=== PATIENT | female | born 1945 | race Caucasian/White ===

== ENCOUNTER 2019-08-10 14:04 | Inpatient (IN) | payer OTHER, MEDICARE ==
--- NOTE | 2019-08-10 16:06 | PDOC ---
History of Present Illness <Yumiko Harrington - Last Filed: 08/10/19 20:23> - General History Source: Patient, Family Exam Limitations: Clinical Condition (Unable to recall recent events) - History of Present Illness Initial Comments: HPI: 74 y/o female presenting to [facility] ER from home after family found her on the floor of the bathroom. Pt is unable to clearly explain the details of what transpired. Started interview by explaining she fell on Sunday in her kitchen, but then cannot explain why she was found in the bathroom. Denies falling in the bathroom. Denies any pain. Complaining of thirst - states she has not drank water in two days, but cannot explain why. Daughter and grandchildren present at bedside. They report last speaking to the pt on Sunday. Became concerned when they were not able to reach to the pt on the phone today for mosque. Medical Hx: - Colitis Surgical Hx: - S/p hip repair two years ago Review of Systems: In addition to that documented in the HPI above, the additional ROS was obtained : Constitutional- Denies fevers or chills Head- Denies vision changes ENMT- Denies sore throat CV- Denies chest pain Resp- Denies SOB GI- Denies vomiting or abdominal pain - Denies painful urination MSK- Denies recent trauma Skin- Denies new rashes Neuro- Denies new numbness or tingling or weakness Endocrine- Denies polyuria Heme- Denies bleeding or bruising Physical Examination: Vital signs and nursing notes reviewed. Constitutional- Nontoxic adult female in no acute distress or obvious discomfort. Found semi-fowlers on hospital stretcher. Head- Normocephalic. No obvious external signs of trauma. No Porras's sign or periorbital bruising. Eyes- Pupils 4mm and PERRL bilaterally. EOMI. No vertical or horizontal nystagmus. Sclerae white. Conjunctiva moist and not injected. Ears- No discharge. Hearing grossly intact. Nose- No nasal discharge. Throat- Dry mucosal membrane. Poor dentition with multiple dental caries. Neck- Supple, trachea is midline. No JVD. Cardiovascular / Chest- Regular rate and regular rhythm. No murmur, rubs, clicks , or gallops. Peripheral pulses- radial pulses full. Trace pretibial edema. Respiratory- Breathing unlabored. Equal chest rise and fall. Clear to auscultation bilaterally. No stridor, no wheezing, no rhonchi. Gastrointestinal- abdomen is soft, non-tender, non-distended. No pulsatile masses. No overlying skin lesions or obvious signs of trauma. Neuro- Alert and oriented to person, place, day of week, but cannot recall recent events. Moving all four extremities spontaneously. No facial asymmetry. No slurred speech. No drift in upper or lower extremities. No visual field cut. MSK- Pelvis stable and nontender to lateral compression. No leg length discrepancy. Pt able to hold both legs off the bed without discomfort. Skin- Warm and dry. Diffuse erythema to gluteal region. No open sores. Psych- Affect- appropriate. Mood- normal. Speech was non-labored, non- pressured. MDM: 74 y/o female presenting with disoriented mental status after fall at home. Unknown period of time on floor. Afebrile. Vitals unremarkable for hypotension or tachycardia. Physical exam as described above. Low suspicion for bony injury , but will evaluate with CXR and Pelvis plain film. Will evaluate for rhabdomyolysis, ACS, ICH, and electrolyte derangement. HCT unremarkable for acute injury. Reviewed plain films. No obvious fracture or dislocation per ED wet read. Radiology report pending. Noted mildly elevated CK , but not >5x normal. Will hydrate with LR at maintenance dose. Will admit the pt for further hydration and AMS workup. 10 Aug 2019 20:42 PM Page sent for Dr. Askew through office answering service for courtesy call. Awaiting call back. 10 Aug 2019 22:07 PM Telephone discussion with resident Dr. Caballero. Verbally appraised of the pts HPI, ED course, and current plan of management. Will admit pt to med/surg for attending Dr. Everett. UA pending at time of admission. Christiano Burger M.D., PGY2 Emergency Medicine Resident <Christiano Burger - Last Filed: 08/10/19 22:08> - General Chief Complaint: Injury Stated Complaint: FALL Time Seen by Provider: 08/10/19 14:56 NIH Stroke Scale - Last Known Well Date/Time & Onset Date Last Known Well: 08/08/19 Time Last Known Well: 18:00 - Initial Evaluation Level of consciousness: Alert Ask patient the month and their age: Answers one correctly Ask patient to open & close eyes; make fist and let go: Obeys both correctly Best gaze (horizontal eye movement): Normal Visual field testing: No visual field loss Facial paresis (Show teeth/raise eyebrows/close eyes tight): Normal symmetrical movement Motor Function: Left Arm: Normal Motor Function: Right Arm: Normal (extends arm 90 (or 45) degrees for 10 seconds without drift Motor Function: Left Leg: Normal (extends leg 30 degrees for 5 seconds without drift) Motor Function: Right Leg: Normal (extends leg 30 degrees for 5 seconds without drift) Limb Ataxia: No ataxia Sensory(Use pinprick test arms,legs,trunk,face/side to side): Normal Best language (Describe picture, name items, read sentences): No Aphasia Dysarthria (read several words): Normal articulation Extinction and Inattention: No abnormality - Total Score NIH Stroke Scale Score: 1 <Christiano Burger - Last Filed: 08/10/19 22:08> Past History <Yumiko Harrington - Last Filed: 08/10/19 20:23> - Past Medical History COPD: No GI Disorders: Yes (CROHNS/COLITIS) - Psycho Social/Smoking Cessation Hx Smoking Status: No Smoking History: Never smoked Have you smoked in the past 12 months: No Number of Cigarettes Smoked Daily: 0 Information on smoking cessation initiated: No Hx Alcohol Use: No Drug/Substance Use Hx: No <Christiano Burger - Last Filed: 08/10/19 22:08> - Past Medical History Allergies/Adverse Reactions: Allergies Allergy/AdvReac Type Severity Reaction Status Date / Time No Known Allergies Allergy Verified 08/10/19 14:36 Home Medications: Ambulatory Orders No Home Medications 0 dose .ROUTE UTDICT 03/05/13 *Physical Exam - Vital Signs Last Vital Signs Temp Pulse Resp BP Pulse Ox 97.3 F L 84 16 136/90 100 08/10/19 14:23 08/10/19 14:23 08/10/19 14:23 08/10/19 14:23 08/10/19 16:03 <Yumiko Harrington - Last Filed: 08/10/19 20:23> - Vital Signs Last Vital Signs Temp Pulse Resp BP Pulse Ox 97.3 F L 84 16 136/90 100 08/10/19 14:23 08/10/19 14:23 08/10/19 14:23 08/10/19 14:23 08/10/19 14:23 <Christiano Burger - Last Filed: 08/10/19 22:08> ED Treatment Course - LABORATORY CBC & Chemistry Diagram: 08/10/19 16:20 08/10/19 16:20 - ADDITIONAL ORDERS Additional order review: Laboratory Results 08/10/19 08/10/19 08/10/19 16:20 16:20 16:20 PT with INR 11.50 INR 0.97 PTT (Actin FS) 27.9 Sodium 137 Potassium 3.6 Chloride 103 Carbon Dioxide 25 Anion Gap 10 BUN 35.6 H Creatinine 0.9 Est GFR (CKD-EPI)AfAm 72.49 Est GFR (CKD-EPI)NonAf 62.55 POC Glucometer Random Glucose 197 H Calcium 9.7 Total Bilirubin 0.9 AST 49 H ALT 43 Alkaline Phosphatase 131 H Creatine Kinase 888 H Creatine Kinase Index 1.6 CK-MB (CK-2) 14.5 H Troponin I < 0.02 Total Protein 7.1 Albumin 3.7 Blood Type Antibody Screen 08/10/19 08/10/19 16:20 14:42 PT with INR INR PTT (Actin FS) Sodium Potassium Chloride Carbon Dioxide Anion Gap BUN Creatinine Est GFR (CKD-EPI)AfAm Est GFR (CKD-EPI)NonAf POC Glucometer 182 Random Glucose Calcium Total Bilirubin AST ALT Alkaline Phosphatase Creatine Kinase Creatine Kinase Index CK-MB (CK-2) Troponin I Total Protein Albumin Blood Type B POSITIVE Antibody Screen Negative 08/10/19 08/10/19 16:20 14:42 RBC 5.42 H MCV 80.7 MCHC 34.6 RDW 15.3 MPV 8.0 Neutrophils % 83.9 H Lymphocytes % 7.9 L Monocytes % 7.5 Eosinophils % 0.1 Basophils % 0.6 POC Glucometer 182 - Medications Given in the ED: ED Medications Discontinued Medications Generic Name Dose Route Start Last Admin Trade Name Freq PRN Reason Stop Dose Admin Lactated Ringer's 1,000 ml 08/10/19 16:22 08/10/19 16:30 Lactated Ringers Solution IV 08/10/19 16:23 1,000 ml ONCE ONE Administration <Yumiko Harrington - Last Filed: 08/10/19 20:23> - LABORATORY CBC & Chemistry Diagram: 08/10/19 16:20 08/10/19 16:20 - ADDITIONAL ORDERS Additional order review: Laboratory Results 08/10/19 14:42 POC Glucometer 182 08/10/19 14:42 POC Glucometer 182 - RADIOLOGY Radiology Studies Ordered: Category Date Time Status CERVICAL SPINE CT W/O CONTR [CT] Stat CT Scan 08/10/19 15:[address] WITHOUT CONTRAST [CT] Stat CT Scan 08/10/19 15:51 Ordered Radiograph Interpretation: HCT: THIS IS A PRELIMINARY REPORT FROM [employer] [employer] DATE OF SERVICE: 2019-08-10 17:17:49 IMAGES: [id number] EXAM: HEAD CT WITHOUT CONTRAST HISTORY: Fall. Confusion COMPARISON: None. FINDINGS: There is no intra or extra-axial hemorrhage or collection. No mass lesion or midline shift. There is moderate cortical atrophy Ventricular size corresponds with degree of atrophy. Normal torres white matter differentiation. Areas of low attenuation in the periventricular white matter are compatible with chronic microvascular ischemic changes. The calvarium is intact The visualized paranasal sinuses and mastoid air cells are clear. One or more of the following dose reduction techniques were used: automated exposure control, adjustment of the mA and/or kV according to patient size, use of iterative reconstructive technique. THIS DOCUMENT HAS BEEN ELECTRONICALLY SIGNED Christiano Tenorio MD 08/10/2019 19:[address] C-Spine: THIS IS A PRELIMINARY REPORT FROM [facility] [employer] DATE OF SERVICE: 2019-08-10 17:09:57 IMAGES: [id number] EXAM: CERVICAL SPINE CT W/O CONTR HISTORY: Fall COMPARISON: None. FINDINGS: There is no fracture or subluxation. Bony alignment is normal The vertebral body heights are preserved Moderate to severe multilevel degenerative disc changes, multilevel marginal endplate osteophytes and multilevel bilateral facet arthropathy The prevertebral soft tissues are within normal limits Mild pleural thickening at the lung apices. The visualized upper lungs are clear One or more of the following dose reduction techniques were used: automated exposure control, adjustment of the mA and/or kV according to patient size, use of iterative reconstructive technique. THIS DOCUMENT HAS BEEN ELECTRONICALLY SIGNED Christiano Tenorio MD 08/10/2019 19:05 EST <Christiano Burger - Last Filed: 08/10/19 22:08> Discharge <Yumiko Harrington - Last Filed: 08/10/19 20:23> - Discharge Information Problems reviewed: Yes - Admission Yes <Christiano Burger - Last Filed: 08/10/19 22:08> - Discharge Information Clinical Impression/Diagnosis: Fall in elderly patient Altered mental status Qualifiers: Altered mental status type: disorientation Qualified Code(s): R41.0 - Disorientation, unspecified Condition: Stable - Follow up/Referral Referrals: Len Askew MD [Primary Care Provider] - - Patient Discharge Instructions - Post Discharge Activity
[2019-08-10] MEDS ORDERED: LACTATED RINGERS SOLUTION 1000 ML INFUS.BAG IV ONE (16:22)
[2019-08-10 16:36] LABS: BASO % 0.6 % (0-2.0); EOS % 0.1 % (0-4.5); HEMATOCRIT 43.7 % (32.4-45.2); HEMOGLOBIN 15.1 GM/dL (10.7-15.3); LYMPH % 7.9 % (8-40); MCH 27.9 pg (25.7-33.7); MCHC 34.6 g/dl (32.0-36.0); MEAN CELL VOLUME 80.7 fl (80-96); MONO % 7.5 % (3.8-10.2); NEUT % 83.9 % (42.8-82.8); PLATELET COUNT 353 K/MM3 (134-434); RBC 5.42 M/mm3 (3.60-5.2); RDW 15.3 % (11.6-15.6); WHITE BLOOD COUNT 14.4 K/mm3 (4.0-10.0)
[2019-08-10 16:48] LABS: INR 0.97 (0.83-1.09); PROTHROMBIN TIME (PATIENT) 11.5 SEC (9.7-13.0)
[2019-08-10 16:51] LABS: ACTIVATED PTT 27.9 SECONDS (25.2-36.5)
[2019-08-10 17:12] LABS: ALBUMIN 3.7 g/dl (3.4-5.0); BILIRUBIN,TOTAL 0.9 mg/dL (0.2-1); BLOOD UREA NITROGEN 35.6 mg/dL (7-18); CALCIUM 9.7 mg/dL (8.5-10.1); CREATININE 0.9 mg/dL (0.55-1.3); POTASSIUM 3.6 mmol/L (3.5-5.1); TOT PROT 7.1 g/dl (6.4-8.2)
--- NOTE | 2019-08-10 18:33 | PDOC ---
Documentation entered by Francoise Rose SCRIBE, acting as scribe for Yumiko Harrington MD. Yumiko Hrarington MD: This documentation has been prepared by the teriibe, Francoise Rose SCRIBE, under my direction and personally reviewed by me in its entirety. I confirm that the documentation accurately reflects all work, treatment, procedures, and medical decision making performed by me. Attending Attestation - Resident Resident Name: BurgerChristiano - ED Attending Attestation I have performed the following: I have examined & evaluated the patient, The case was reviewed & discussed with the resident, I agree w/resident's findings & plan, Exceptions are as noted - HPI HPI: 08/10/19 19:03 The patient is a 74-year-old female with a past medical history significant for hx of diverticulitis and s/p hip replacement who presents to the emergency department after being found on the floor by family. The patient lives alone and ambulates with a walker. The family reports the patient wasnt answering her phone, and when they went to check on her, they found her on the floor. The patient states she was fine on Sunday, however she is unable to recall what happened between Sunday and today. The patient has a redness to the buttocks without skin breakdown. - Physicial Exam PE: 08/10/19 18:45 Conversant 74 yo female on the gurney surrounded by family Head no scalp lacerations,no forehead hematomas noted Very dry mucus membranes lungs cta b.k cvs [id number] abd nontender mild erythema to both buttocks but no skin breakdown extremities no edema skin warm and dry neur alert and conversant, motor strength 5/5,b/l but poor historian in regards to what transpired in past 24-48 hours - Medical Decision Making 08/10/19 18:56 74 yo female last seen on Sunday in her normal state of health,was not answeringhre phone so family went to her residence and found her on bathroom floor pt unable to recall what happened no significant PMH except diverticulitis/colitis PSH hip replacement NIHSS =1. labs reviewed,elevated [id number] but negative troponin CAT scan of the head shows no intra-or extra-axial hemorrhage or collection, no mass or midline shift, moderate atrophy intact calvarium CT of the cervical spine is negative for fracture or subluxation, bony alignment is normal 08/10/19 18:58 admit :Confusion,possible syncope, fall 08/10/19 20:23 08/10/19 20:24
[2019-08-10] MEDS: LACTATED RINGERS SOLUTION 1,000 ML/1,000 ML INFUS.BAG IV SCH (20:20)
--- NOTE | 2019-08-10 21:27 | PN ---
Teaching Attending Note Name of Resident: Rob Caballero ATTENDING PHYSICIAN STATEMENT I saw and evaluated the patient. I reviewed the resident's note and discussed the case with the resident. I agree with the resident's findings and plan as documented. SUBJECTIVE: Patient is a 74 year old woman with a PMH Diverticulitis and Left hip surgery presenting to the ER from home after family found her on the floor of the bathroom. Patient is unable to clearly explain the details of what transpired. Started interview by explaining she fell on Sunday in her kitchen, but then cannot explain why she was found in the bathroom. Denies falling in the bathroom or pain. Complaining of thirst - states she has not drank water in two days, but cannot explain why. Became concerned when they were not able to reach to the patient on the phone today for alevism. Denies fever, chills, nausea, vomiting, SOB, headache, abdominal pain, dysuria, frequency or diarrhea. Ambulates with a cane. Denies alcohol, tobacco or illicit drug use. No sick contacts or recent travels. OBJECTIVE: Vital Signs Period Temp Pulse Resp BP Sys/Linton Pulse Ox Last 24 Hr 97.3 F 84 16 136/90 100-100 HEENT: No Jaundice, eye redness or discharge, PERRLA, EOMI. Dry mucous membranes ; Normocephalic, atraumatic. External ears are normal and hearing is grossly intact. No nasal discharge. Neck: Supple, nontender. No palpable adenopathy or thyromegaly. No JVD Chest: Good effort. Clear to auscultation and percussion. Heart: Regular. No S3, rub or murmur Abdomen: Not distended, soft, nontender and no HSM. No rebound or guarding. Normal bowel sounds. Ext: Peripheral pulses intact. No leg edema. Dystrophic and unkempt toe nails. Skin: Warm and dry. No petechiae, rash or ecchymosis. Neuro: Alert. Oriented x3. CN 2-12 grossly intact. Sensation grossly intact in all four extremities and DTR are symmetric. Psych: Appropriate mood and affect. Good insight. Current Medications Generic Name Dose Route Start Last Admin Trade Name Freq PRN Reason Stop Dose Admin Lactated Ringer's 1,000 ml in 1,000 mls @ 125 mls/hr 08/10/19 18:30 08/10/19 20:20 Lactated Ringers Solution IV 125 mls/hr [facility] Administration Home Medications Medication Instructions Recorded No Home Medications 0 dose .ROUTE UTDICT 03/05/13 Abnormal Lab Results 08/10/19 08/10/19 08/10/19 16:20 16:20 16:20 WBC 14.4 H RBC 5.42 H Absolute Neuts (auto) 12.1 H Neutrophils % 83.9 H Lymphocytes % 7.9 L BUN 35.6 H Random Glucose 197 H AST 49 H Alkaline Phosphatase 131 H Creatine Kinase 888 H CK-MB (CK-2) 14.5 H ASSESSMENT AND PLAN: 1. Fall/AMS - Mentation improved while in the ER and may be due to toxic metabolic encephalopathy caused by ?infection and/or dehydration. CXR shows RLL infiltrate. No acute abnormality on head CT and on C-spine CT. No fracture on hip xray and left hip hardware looks intact. Will get urinalysis stat and chest CT before deciding on antibiotics treatment. Get HbA1c. EKG shows NSR with nonspecific ST-T wave changes. Will continue comprehensive care for all of patients comorbid conditions. 2. MONIKA - Has features of rhabdomyolysis. UA pending. Will hydrate gently with LR , check phosphate, kidney sonogram and monitor urine output. Will consult nephrology and avoid nephrotoxic agents such as NSAIDS, aminoglycosides, contrast dyes and certain Alternative medicine products. 3. Anemia -Do basic anemia work up including serial stool guaiacs, reticulocyte count and iron studies. Would benefit from Procrit therapy once iron replete. 4. DVT prophylaxis - Lovenox 40 mg SQ q 24 hours. 5. Advance directives - Full code
--- NOTE | 2019-08-11 00:20 | HP ---
CHIEF COMPLAINT: altered mental status PCP: Dr. Askew HISTORY OF PRESENT ILLNESS: Mickie Harris is a 74 year old female with a past medical history of colitits and left hip fracture and stabilization who presents s/p fall and altered mental status. The patient states that on Sunday she was at her kitchen counter and she had a fall onto her buttocks. She denies head hit, prodromal symptoms of chest pain, shortness of breath, dizziness, lightheadedness, diaphoresis, palpitations. She states that after the fall she was able to get up and ambulate after that. She stated that she came to the ED at the insistence of her family. As per the ED, the family who was previously at bedside noted that they attempted to contact the patient on day of admission to go to voodoo and were unable to do so. When the patient was check on at her house she was noted to be found down in the bathroom. The patient denies this story. At interview, the patient endorses some gluteal pain. She denies cp, sob, abd pain, n/v/c/d, palpitations, dizziness, lightheadedness, focal weakness, numbness, tingling, fevers, chills. She states that she feels that her mouth is dry and noted that she did not have a good appetite or good oral intake of fluids in the last 2 days. She noted that she usually ambulates with a cane. She denies recent travel or sick contacts. ER course was notable for: (1)WBC 14.4 with left shit, alk phos 131, CPK 888 (2) CT head with moderate cortical atrophy, CT cervical spine with moderate to severe multilevel degenerative disc disease, multilevel marginal endplate osteophytes and multilevel bilateral facet atrophy, no acute pathology. Hip X- ray with no acute fracture (3) CXR is suspicious for an infiltrate in the RLL (4) Given LR 1L and started on LR at 125cc/hr Recent Travel: denies PAST MEDICAL HISTORY: as above PAST SURGICAL HISTORY: L hip stabilization s/p fx Social History: Smoking: former smoker quit greater than 30 years ago Alcohol: denies Drugs: denies Currently works for the [employer]. Lives at home. Allergies No Known Allergies Allergy (Verified 08/10/19 14:36) HOME MEDICATIONS: Home Medications Medication Instructions Recorded No Home Medications 0 dose .ROUTE UTDICT 08/14/13 REVIEW OF SYSTEMS CONSTITUTIONAL: mild generalized weakness, poor oral intake Absent: fever, chills, diaphoresis, malaise, weight change HEENT: Absent: rhinorrhea, nasal congestion, throat pain, throat swelling, difficulty swallowing, visual changes CARDIOVASCULAR: Absent: chest pain, syncope, palpitations, irregular heart rate, lightheadedness , peripheral edema RESPIRATORY: Absent: cough, shortness of breath, dyspnea with exertion, orthopnea, wheezing, GASTROINTESTINAL: Absent: abdominal pain, abdominal distension, nausea, vomiting, diarrhea, constipation GENITOURINARY: Absent: dysuria, frequency, urgency, hesitancy, hematuria, flank pain MUSCULOSKELETAL: Absent: myalgia, arthralgia, joint swelling, back pain, neck pain SKIN: Absent: rash, itching, pallor HEMATOLOGIC/IMMUNOLOGIC: Absent: easy bleeding, easy bruising, lymphadenopathy, frequent infections ENDOCRINE: Absent: unexplained weight gain, unexplained weight loss, heat intolerance, cold intolerance NEUROLOGIC: Absent: headache, focal weakness or paresthesias, dizziness, unsteady gait, seizure, bladder or bowel incontinence PSYCHIATRIC: Absent: anxiety, depression, suicidal or homicidal ideation, hallucinations. PHYSICAL EXAMINATION Vital Signs - 24 hr 08/10/19 08/10/19 08/10/19 14:23 16:03 23:29 Temperature 97.3 F L Pulse Rate 84 Pulse Rate [ 80 Right] Respiratory 16 18 Rate Blood Pressure 136/90 Blood Pressure 133/85 [Right Arm] O2 Sat by Pulse 100 100 97 Oximetry (%) 08/10/19 23:43 Temperature 98.0 F Pulse Rate Pulse Rate [ 106 H Right] Respiratory Rate Blood Pressure Blood Pressure 143/75 [Right Arm] O2 Sat by Pulse 100 Oximetry (%) GENERAL: Awake, alert, and fully oriented, in no acute distress. HEAD: Normal with no signs of trauma. EYES: Pupils equal, round and reactive to light, extraocular movements intact, sclera anicteric, conjunctiva clear. EARS, NOSE, THROAT: Oropharynx clear without exudates. Dry mucous membranes. NECK: Normal range of motion, supple without lymphadenopathy, JVD. LUNGS: Breath sounds equal, clear to auscultation bilaterally. No wheezes, and no crackles. No accessory muscle use. HEART: Regular rate and rhythm, normal S1 and S2 without murmur, rub. ABDOMEN: Soft, nontender, not distended, normoactive bowel sounds, no guarding, no rebound, no masses. MUSCULOSKELETAL: Normal range of motion at all joints. No bony deformities or tenderness. No CVA tenderness. UPPER EXTREMITIES: 2+ pulses, warm, well-perfused. No cyanosis. No clubbing. No peripheral edema. LOWER EXTREMITIES: 2+ pulses, warm, well-perfused. No calf tenderness. No peripheral edema. Extensive long toenails with curvature with onychomycosis. NEUROLOGICAL: Cranial nerves II-XII intact. 5/5 muscle strength bilaterally upper and lower extremities. Sensation intact to gross touch throughout. Poor balance and unstable gait. PSYCHIATRIC: Cooperative. Good eye contact. Appropriate mood and affect. SKIN: Warm, dry, normal turgor, no rashes or lesions noted, normal capillary refill. Laboratory Results - last 24 hr 08/10/19 08/10/19 08/10/19 14:42 16:20 16:20 WBC RBC Hgb Hct MCV MCH MCHC RDW Plt Count MPV Absolute Neuts (auto) Neutrophils % Lymphocytes % Monocytes % Eosinophils % Basophils % Nucleated RBC % PT with INR INR PTT (Actin FS) Sodium Potassium Chloride Carbon Dioxide Anion Gap BUN Creatinine Est GFR (CKD-EPI)AfAm Est GFR (CKD-EPI)NonAf POC Glucometer 182 Random Glucose Calcium Total Bilirubin AST ALT Alkaline Phosphatase Creatine Kinase 888 H Creatine Kinase Index 1.6 CK-MB (CK-2) 14.5 H Troponin I < 0.02 Total Protein Albumin Blood Type B POSITIVE Antibody Screen Negative 08/10/19 08/10/19 08/10/19 16:20 16:20 16:20 WBC 14.4 H RBC 5.42 H Hgb 15.1 Hct 43.7 MCV 80.7 MCH 27.9 MCHC 34.6 RDW 15.3 Plt Count 353 MPV 8.0 Absolute Neuts (auto) 12.1 H Neutrophils % 83.9 H Lymphocytes % 7.9 L Monocytes % 7.5 Eosinophils % 0.1 Basophils % 0.6 Nucleated RBC % 0 PT with INR 11.50 INR 0.97 PTT (Actin FS) 27.9 Sodium 137 Potassium 3.6 Chloride 103 Carbon Dioxide 25 Anion Gap 10 BUN 35.6 H Creatinine 0.9 Est GFR (CKD-EPI)AfAm 72.49 Est GFR (CKD-EPI)NonAf 62.55 POC Glucometer Random Glucose 197 H Calcium 9.7 Total Bilirubin 0.9 AST 49 H ALT 43 Alkaline Phosphatase 131 H Creatine Kinase Creatine Kinase Index CK-MB (CK-2) Troponin I Total Protein 7.1 Albumin 3.7 Blood Type Antibody Screen EKG--> sinus rhythm with arrhythmia, non-specific ST changes, QTc 459 ASSESSMENT/PLAN: Mickie Harris is a 74 year old female with a past medical history of colitits and left hip fracture admitted for a fall and altered mental status. Altered Mental Status - at interview patient was alert and oriented x3 with mild confusion of day of the week - brief AMS may be due to underlying infection vs dehydration - UA - chest CT with no note inflitrate, no effusion - B12, TSH, RPR - Flu swab - continue hydration with LR at 125cc/hr - fall precautions - physical therapy CPK elevation - likely due to fall trauma - continue hydration - renal/bladder U/S - continue to monitor Leukocytosis - likely reactive in setting of fall vs underlying infections - continue to monitor DVT PPx - Lovenox 40mg subq daily FEN - LR at 125cc/hr - continue to monitor electrolytes and replete as necessary - Regular diet Dispo - admit to Med-surg Family Medical History Family History: Denies Visit type - Emergency Visit Emergency Visit: Yes ED Registration Date: 08/10/19 Care time: The patient presented to the Emergency Department on the above date and was hospitalized for further evaluation of their emergent condition. - New Patient This patient is new to me today: Yes Date on this admission: 08/11/19 - Critical Care Critical Care patient: No
[2019-08-11 06:47] LABS: URINE APPEARANCE CLEAR; URINE BILIRUBIN NEGATIVE (NEGATIVE); URINE COLOR YELLOW; URINE GLUCOSE (UA) 3+ (NEGATIVE); URINE KETONE TRACE (NEGATIVE); URINE LEUK ESTERASE NEGATIVE (NEGATIVE); URINE NITRITE NEGATIVE (NEGATIVE); URINE PROTEIN NEGATIVE (NEGATIVE); URINE UROBILINOGEN 0.2 mg/dL (0.2-1.0)
[2019-08-11 07:12] LABS: BASO % 0.3 % (0-2.0); EOS % 0.2 % (0-4.5); HEMATOCRIT 38.7 % (32.4-45.2); HEMOGLOBIN 13.5 GM/dL (10.7-15.3); LYMPH % 11.3 % (8-40); MCH 28.2 pg (25.7-33.7); MCHC 34.8 g/dl (32.0-36.0); MEAN CELL VOLUME 81.2 fl (80-96); MEAN PLT VOLUME 8.2 fl (7.5-11.1); MONO % 9.8 % (3.8-10.2); NEUT % 78.4 % (42.8-82.8); PLATELET COUNT 289 K/MM3 (134-434); RBC 4.77 M/mm3 (3.60-5.2); RDW 15.4 % (11.6-15.6); WHITE BLOOD COUNT 10.2 K/mm3 (4.0-10.0)
[2019-08-11 07:40] LABS: BLOOD UREA NITROGEN 31.1 mg/dL (7-18); CALCIUM 9.4 mg/dL (8.5-10.1); CREATININE 0.8 mg/dL (0.55-1.3); MAGNESIUM 2.3 mg/dL (1.8-2.4); POTASSIUM 3.4 mmol/L (3.5-5.1)
--- NOTE | 2019-08-11 10:02 | EKG ---
Test Reason : Blood Pressure : / mmHG Vent. Rate : 090 BPM Atrial Rate : 090 BPM P-R Int : 182 ms QRS Dur : 076 ms QT Int : 376 ms P-R-T Axes : 067 055 061 degrees QTc Int : 459 ms SINUS RHYTHM WITH MARKED SINUS ARRHYTHMIA NONSPECIFIC ST AND T WAVE ABNORMALITY ABNORMAL ECG NO PREVIOUS ECGS AVAILABLE Confirmed by ZOE HURST MD ([id number]) on 08/11/2019 10:01:35 AM Referred By: Confirmed By:ZOE HURST MD
[2019-08-11] MEDS ORDERED: POTASSIUM CHLORIDE TABS 10 MEQ TABLET.ER (FP) PO ONE (10:39)
[2019-08-11] MEDS: ENOXAPARIN NA (PORCINE) 40 MG/0.4 ML DISP.SYRIN SQ SCH (10:57)
--- NOTE | 2019-08-11 11:25 | CON.CARD ---
Consult Consult Specialty:: Cardiology Referred by:: Hospitalist Medicine Reason for Consultation:: s/p fall, possible syncope - History of Present Illness Chief Complaint: s/p fall, possible syncope History of Present Illness: Patient is a 74 year old woman with a PMH Diverticulitis, Type 2 DM and Left hip surgery presenting to the ER from home after family found her on the floor of the bathroom. Patient reports mechanical fall w/o loss of consciousness, denies associated chest pain, dyspnea, palpitations, near or true syncope, orthopnea, PND or LE edema. Ambulates with cane assistance. Denies alcohol, tobacco or illicit drug use. No sick contacts or recent travels. She feels back to baseline. - History Source History Provided By: Patient Limitations to Obtaining History: No Limitations - Alcohol/Substance Use Hx Alcohol Use: No - Smoking History Smoking history: Never smoked Have you smoked in the past 12 months: No Aproximately how many cigarettes per day: 0 Home Medications - Allergies Allergies/Adverse Reactions: Allergies Allergy/AdvReac Type Severity Reaction Status Date / Time No Known Allergies Allergy Verified 08/10/19 14:36 - Home Medications Home Medications: Ambulatory Orders No Home Medications 0 dose .ROUTE UTDICT 03/05/13 Review of Systems - Review of Systems Neurological: reports: Unsteady Gait Vital Signs: Vital Signs Temperature 98.0 F 08/11/19 01:03 Pulse Rate 71 08/11/19 07:34 Respiratory Rate 16 08/11/19 07:34 Blood Pressure 135/52 L 08/11/19 07:34 O2 Sat by Pulse Oximetry (%) 100 08/11/19 07:34 Constitutional: Yes: No Distress, Calm, Thin Neck: Yes: Supple Respiratory: Yes: Regular, CTA Bilaterally Gastrointestinal: Yes: Normal Bowel Sounds, Soft Cardiovascular: Yes: Regular Rate and Rhythm JVD: No Carotid Bruit: No Heart Sounds: Yes: S1, S2 Murmur: Yes: Systolic Murmur, Grade 1 Edema: No - Other Data Labs, Other Data: CBC, BMP 08/11/19 06:00 08/11/19 06:00 INR, PTT INR 0.97 (0.83-1.09) 08/10/19 16:20 Troponin, BNP 08/10/19 16:20 Troponin I < 0.02 Troponin, BNP 08/10/19 16:20 Troponin I < 0.02 Imaging - Results Chest X-ray: Report Reviewed (NAD) X-ray: Report Reviewed (Left hip fracture with hardware) Cat Scan: Report Reviewed (Chest CT: NAD HCT: No acute changes) Problem List - Problems (1) Altered mental status Code(s): R41.82 - ALTERED MENTAL STATUS, UNSPECIFIED Qualifiers: Altered mental status type: disorientation Qualified Code(s): R41.0 - Disorientation, unspecified (2) Fall in elderly patient Code(s): R29.6 - REPEATED FALLS (3) Hypokalemia Code(s): E87.6 - HYPOKALEMIA (4) Rhabdomyolysis Code(s): M62.82 - RHABDOMYOLYSIS Qualifiers: Rhabdomyolysis type: traumatic Encounter type: initial encounter Qualified Code(s): T79.6XXA - Traumatic ischemia of muscle, initial encounter Assessment/Plan 1. Post fall/AMS since resolved 2. Rhabdomyolysis 3. Type 2 DM 4. Hypokalemia P:1. Hydration with monitor renal fxn, CPK and replete K as you are, f/u renal sonogram and echocardiogram, observe off abx per C&S 2. PT with gait training 3. Optimize glycemic control, DVT prophylaxis 4. Thank you for consultative opportunity
[2019-08-11 17:06] VITALS: BMI 25.7
[2019-08-11] MEDS: LACTATED RINGERS SOLUTION 1,000 ML/1,000 ML INFUS.BAG IV SCH (18:58)
--- NOTE | 2019-08-11 23:25 | PN ---
Physical Exam: SUBJECTIVE: Patient seen and examined feels well, endorses some aches and pain. Appears she had a mechanical fall (not true syncope), when she "missed her chair " when sitting back while trying to sort out some bills on her kitchen table, took a while to get up, nobody reported to be home when she fell. OBJECTIVE: Vital Signs Period Temp Pulse Resp BP Sys/[place] Pulse Ox Last 24 Hr 97.5 F-98.1 F 71-106 16-20 117-143/52-85 97-100 GENERAL: The patient is awake, alert, and fully oriented, in no acute distress. HEAD: Normal with no signs of trauma. EYES: PERRL, extraocular movements intact, sclera anicteric, conjunctiva clear. No ptosis. ENT: Ears normal, nares patent, oropharynx clear without exudates, moist mucous membranes. NECK: Trachea midline, full range of motion, supple. LUNGS: Breath sounds equal, clear to auscultation bilaterally, no wheezes, no crackles, no accessory muscle use. HEART: Regular rate and rhythm, S1, S2 without murmur, rub or gallop. ABDOMEN: Soft, NT, ND, no HSM, no guarding EXTREMITIES: 2+ pulses, warm, well-perfused, no edema. NEUROLOGICAL: Cranial nerves II through XII grossly intact. Normal speech, gait not observed. PSYCH: Normal mood, normal affect. SKIN: Warm, dry, normal turgor, no rashes or lesions noted Laboratory Results - last 24 hr 08/10/19 08/11/19 08/11/19 11:30 06:00 06:00 WBC 10.2 H RBC 4.77 Hgb 13.5 Hct 38.7 MCV 81.2 MCH 28.2 MCHC 34.8 RDW 15.4 Plt Count 289 MPV 8.2 Absolute Neuts (auto) 8.0 Neutrophils % 78.4 Lymphocytes % 11.3 D Monocytes % 9.8 Eosinophils % 0.2 D Basophils % 0.3 Nucleated RBC % 0 Sodium Potassium Chloride Carbon Dioxide Anion Gap BUN Creatinine Est GFR (CKD-EPI)AfAm Est GFR (CKD-EPI)NonAf Random Glucose Hemoglobin A1c % Calcium Phosphorus Magnesium Creatine Kinase Creatine Kinase Index CK-MB (CK-2) Troponin I Vitamin B12 TSH Urine Color Yellow Urine Appearance Clear Urine pH 5.0 Ur Specific [place] 1.032 Urine Protein Negative Urine Glucose (UA) 3+ H Urine Ketones Trace H Urine Blood Negative Urine Nitrite Negative Urine Bilirubin Negative Urine Urobilinogen 0.2 Ur Leukocyte Esterase Negative RPR Titer Influenza A (Rapid) Influenza B (Rapid) Blood Type B POSITIVE 08/11/19 08/11/19 08/11/19 06:00 06:00 06:00 WBC RBC Hgb Hct MCV MCH MCHC RDW Plt Count MPV Absolute Neuts (auto) Neutrophils % Lymphocytes % Monocytes % Eosinophils % Basophils % Nucleated RBC % Sodium 140 Potassium 3.4 L Chloride 105 Carbon Dioxide 27 Anion Gap 8 BUN 31.1 H Creatinine 0.8 Est GFR (CKD-EPI)AfAm 83.59 Est GFR (CKD-EPI)NonAf 72.12 Random Glucose 168 H Hemoglobin A1c % Calcium 9.4 Phosphorus 3.0 Magnesium 2.3 Creatine Kinase 692 H Creatine Kinase Index 1.1 CK-MB (CK-2) 8.2 H Troponin I < 0.02 Vitamin B12 802 TSH 0.91 Urine Color Urine Appearance Urine pH Ur Specific [place] Urine Protein Urine Glucose (UA) Urine Ketones Urine Blood Urine Nitrite Urine Bilirubin Urine Urobilinogen Ur Leukocyte Esterase RPR Titer Nonreactive Influenza A (Rapid) Influenza B (Rapid) Blood Type 08/11/19 08/11/19 08/11/19 06:00 06:00 16:00 WBC RBC Hgb Hct MCV MCH MCHC RDW Plt Count MPV Absolute Neuts (auto) Neutrophils % Lymphocytes % Monocytes % Eosinophils % Basophils % Nucleated RBC % Sodium Potassium Chloride Carbon Dioxide Anion Gap BUN Creatinine Est GFR (CKD-EPI)AfAm Est GFR (CKD-EPI)NonAf Random Glucose Hemoglobin A1c % 7.4 H Calcium Phosphorus Magnesium Creatine Kinase Creatine Kinase Index CK-MB (CK-2) Troponin I < 0.02 Vitamin B12 TSH Urine Color Urine Appearance Urine pH Ur Specific [place] Urine Protein Urine Glucose (UA) Urine Ketones Urine Blood Urine Nitrite Urine Bilirubin Urine Urobilinogen Ur Leukocyte Esterase RPR Titer Influenza A (Rapid) Negative Influenza B (Rapid) Negative Blood Type Active Medications Generic Name Dose Route Start Last Admin Trade Name Freq PRN Reason Stop Dose Admin Enoxaparin Sodium 40 mg 08/11/19 10:00 08/11/19 10:57 Lovenox - SQ 40 mg DAILY [facility] Administration Lactated Ringer's 1,000 ml in 1,000 mls @ 125 mls/hr 08/10/19 18:30 08/11/19 18:58 Lactated Ringers Solution IV 125 mls/hr [facility] Administration ASSESSMENT/PLAN: 74 F h/o diverticulitis, L hip repair, presents s/p mechanical slip and fall when trying to sit on kitchen chair and missed. Denies CP/SOB/dizziness/near syncope. Mechanical fall evaluated by Cardiology service, appears to be non-syncopal/cardiac etiology for fall, after obtaining clearer story from patient, appears to be mechanical fall d/t not sitting fully on chair and slipping off. Rhabdo due to being on floor for a while, and muscle injury-cont. IVF, CK trending down, monitor CRE PT evaluation for gait and transfer T2DM newly diagnosed A1c >7% will likely need Metformin/Januvia as outpatient Endocrine consult to establish care, breastfeeding peer counselor on diet/exercise/weight loss: Dr. Ange Dent hip repair hardware stable, no s/o infection DVT ppx: Lovenox SC Early ambulation as needed Visit type - Emergency Visit Emergency Visit: Yes ED Registration Date: 08/10/19 Care time: The patient presented to the Emergency Department on the above date and was hospitalized for further evaluation of their emergent condition. - New Patient This patient is new to me today: Yes Date on this admission: 08/11/19 - Critical Care Critical Care patient: No - Discharge Referral Referred to [facility] Med P.C.: No
[2019-08-12] MEDS: LACTATED RINGERS SOLUTION 1,000 ML/1,000 ML INFUS.BAG IV SCH ×2 (04:55→18:50)
[2019-08-12 09:50] LABS: BASO % 0.5 % (0-2.0); EOS % 0.1 % (0-4.5); HEMATOCRIT 35.5 % (32.4-45.2); HEMOGLOBIN 12.2 GM/dL (10.7-15.3); LYMPH % 15.1 % (8-40); MCH 28.1 pg (25.7-33.7); MCHC 34.4 g/dl (32.0-36.0); MEAN CELL VOLUME 81.5 fl (80-96); MEAN PLT VOLUME 8.1 fl (7.5-11.1); MONO % 8.4 % (3.8-10.2); NEUT % 75.9 % (42.8-82.8); PLATELET COUNT 250 K/MM3 (134-434); RBC 4.36 M/mm3 (3.60-5.2); RDW 15.1 % (11.6-15.6); WHITE BLOOD COUNT 7.2 K/mm3 (4.0-10.0)
[2019-08-12 10:26] LABS: ALBUMIN 2.7 g/dl (3.4-5.0); BILIRUBIN,TOTAL 0.7 mg/dL (0.2-1); CALCIUM 8.7 mg/dL (8.5-10.1); CREATININE 0.6 mg/dL (0.55-1.3); POTASSIUM 3.7 mmol/L (3.5-5.1); TOT PROT 5.8 g/dl (6.4-8.2)
[2019-08-12] MEDS ORDERED: POTASSIUM CHLORIDE ORAL LIQUID 20 MEQ/15 ML PO ONE (10:29)
[2019-08-12] MEDS: ENOXAPARIN NA (PORCINE) 40 MG/0.4 ML DISP.SYRIN SQ SCH (11:19)
--- NOTE | 2019-08-12 11:29 | PN ---
Progress Note, Physician Chief Complaint: Events noted not in distress History of Present Illness: Patient was seen and examined. Awake and alert. Chart was reviewed Denies chest pain, SOB or palpitations - Current Medication List Current Medications: Active Medications Enoxaparin Sodium (Lovenox -) 40 mg SQ DAILY [facility] Last Admin: 08/12/19 11:19 Dose: 40 mg Lactated Ringer's (Lactated Ringers Solution) 1,000 ml in 1,000 mls @ 125 mls/ hr IV ASDIR [facility] Last Admin: 08/12/19 04:55 Dose: 125 mls/hr - Objective Vital Signs: Vital Signs Temperature 98 F 08/12/19 07:23 Pulse Rate 62 08/12/19 07:23 Respiratory Rate 20 08/12/19 07:23 Blood Pressure 131/63 08/12/19 07:23 O2 Sat by Pulse Oximetry (%) 100 08/11/19 21:00 Eyes: Yes: PERRL HENT: Yes: Atraumatic Neck: Yes: Supple Cardiovascular: Yes: Regular Rate and Rhythm, Murmur (Soft SM), S1, S2 Respiratory: Yes: CTA Bilaterally Gastrointestinal: Yes: Normal Bowel Sounds, Soft. No: Tenderness Edema: No Labs: CBC, BMP 08/12/19 08:30 08/12/19 08:30 INR, PTT INR 0.97 (0.83-1.09) 08/10/19 16:20 Problem List - Problems (1) Diabetes mellitus Code(s): E11.9 - TYPE 2 DIABETES MELLITUS WITHOUT COMPLICATIONS (2) Altered mental status Code(s): R41.82 - ALTERED MENTAL STATUS, UNSPECIFIED Qualifiers: Altered mental status type: disorientation Qualified Code(s): R41.0 - Disorientation, unspecified (3) Fall in elderly patient Code(s): R29.6 - REPEATED FALLS (4) Hypokalemia Code(s): E87.6 - HYPOKALEMIA (5) Rhabdomyolysis Code(s): M62.82 - RHABDOMYOLYSIS Qualifiers: Rhabdomyolysis type: traumatic Encounter type: initial encounter Qualified Code(s): T79.6XXA - Traumatic ischemia of muscle, initial encounter Assessment/Plan 1. Post fall/AMS - resolved currently A/Ox3 2. Rhabdomyolysis 3. Type 2 DM 4. Hypokalemia PLAN: 1. Hydration with monitor renal function, CPK and replete K as needed. 2. PT with gait training 3. Optimize glycemic control and DVT prophylaxis 4. Echocardiography to assess LV/RV and valvular function prior to discharge Paul Pagan MD
--- NOTE | 2019-08-12 11:30 | EKG ---
Test Reason : Blood Pressure : / mmHG Vent. Rate : 097 BPM Atrial Rate : 097 BPM P-R Int : 184 ms QRS Dur : 084 ms QT Int : 380 ms P-R-T Axes : 072 040 084 degrees QTc Int : 482 ms SINUS RHYTHM WITH PREMATURE ATRIAL COMPLEXES NONSPECIFIC ST AND T WAVE ABNORMALITY PROLONGED QT ABNORMAL ECG WHEN COMPARED WITH ECG OF 10-AUG-2019 14:37, PREMATURE ATRIAL COMPLEXES ARE NOW PRESENT T WAVE INVERSION LESS EVIDENT IN LATERAL LEADS Confirmed by Mulugeta Mast MD ([id number]) on 08/12/2019 11:30:37 AM Referred By: Confirmed By:Mulugeta Mast MD
--- NOTE | 2019-08-12 14:14 | DS ---
Physical Examination Vital Signs: Vital Signs Temperature 98 F 08/12/19 07:23 Pulse Rate 62 08/12/19 07:23 Respiratory Rate 20 08/12/19 07:23 Blood Pressure 131/63 08/12/19 07:23 O2 Sat by Pulse Oximetry (%) 100 08/11/19 21:00 Constitutional: Yes: Well Nourished, No Distress, Calm Eyes: Yes: Conjunctiva Clear, PERRL HENT: Yes: Atraumatic, Normocephalic Neck: Yes: Supple, Trachea Midline Cardiovascular: Yes: Regular Rate and Rhythm Respiratory: Yes: Regular, CTA Bilaterally Gastrointestinal: Yes: Normal Bowel Sounds, Soft, Abdomen, Obese ...Rectal Exam: Yes: Deferred Musculoskeletal: Yes: WNL Extremities: Yes: WNL Edema: No Peripheral Pulses WNL: Yes Peripheral Pulses: Left Radial: 2+, Right Radial: 2+, Left Doralis Pedis: 1+, Right Dorsalis Pedis: 1+ Integumentary: Yes: Other (lesion to nose) Neurological: Yes: Alert, Oriented, Unsteady Gait ...Motor Strength: WNL Psychiatric: Yes: Alert, Oriented Labs: CBC, BMP 08/12/19 08:30 08/12/19 08:30 Discharge Summary Problems reviewed: Yes Reason For Visit: FALL Current Active Problems Altered mental status (Acute) Diabetes mellitus (Acute) Fall in elderly patient (Acute) Hypokalemia (Acute) Rhabdomyolysis (Acute) Procedures: Principal: ECHO 08/12/2019 pending. . Renal sono 08/11/2019. IMPRESSION: 1. No evidence of hydronephrosis or acute renal pathology. 2. Urinary retention. Please see above discussion.Reported By: Cirilo Stephens MD 08/11/19 1526. . Pelvic sono 2019. IMPRESSION: 1. No evidence of hydronephrosis or acute renal pathology. 2. Urinary retention. Please see above discussion.Reported By: Cirilo Stephens MD 08/11/[address] . Chest CT 08/11/2019. IMPRESSION: No evidence of pneumonia or acute pathology within the chest. Please see above discussion. Reported By: Cirilo Stephens MD. 08/11/19 1045. . CR pelvis 08/10/2019. Impression : Previous left hip fracture stabilization with hardware. No acute pathology appreciated. Reported By: Rob Garcia MD 08/11/19 0711. . CXR 08/10/2019. 2 views of the chest have been submitted. There are no prior studies for comparison. The degenerative changes with wedging. The lungs are clear. There may be old rib trauma. There is a prominent mediastinum. The angles are sharp. The soft tissues are intact. An acute process is not seen. Correlation recommended. Reported By: Rob Garcia MD 08/11/[address] Head [address] 08/10/2019. Impression: No acute hemorrhage or acute infarction, no acute change in the brain. Reported By: Christiano Fountain MD 0621. . CT C-spine 08/10/2019. Impression: No evidence of acute fracture or dislocation. Reported By: Christiano Fountain MD 0623. Hospital Course: Patient is a 74 year old woman with a PMH Diverticulitis and Left hip surgery presenting to the ER from home after family found her on the floor of the bathroom. Patient is unable to clearly explain the details of what transpired. Started interview by explaining she fell on Sunday in her kitchen, but then cannot explain why she was found in the bathroom. Denies falling in the bathroom or pain. Complaining of thirst - states she has not drank water in two days, but cannot explain why. Became concerned when they were not able to reach to the patient on the phone today for [employer]. Denies fever, chills, nausea, vomiting, SOB, headache, abdominal pain, dysuria, frequency or diarrhea. Ambulates with a cane. Denies alcohol, tobacco or illicit drug use. No sick contacts or recent travels. CXR shows RLL infiltrate. No acute abnormality on head CT and on C-spine CT. No fracture on hip xray and left hip hardware looks intact. pt was gently hydrated with improvement in CPK levels Cardiology evaluated patient and requested echo prior to discharge. pt seen by PT and could only ambulate 40 feet. She was recommended to be discharged to Rehab. Condition: Stable - Instructions Diet, Activity, Other Instructions: Diet, Activity, Other Instructions: Cardiac diet Fall prevention: Fix, remove, or replace anything that caused your fall. Make your home safe by keeping walkways clear of objects you may trip over. Use nonslip pads under rugs. Don't use small area rugs or throw rugs. Don't walk in poorly lit areas. Don't stand on chairs or wobbly ladders. Use caution when reaching overhead or looking upward. This position can cause a loss of balance. Be sure your shoes fit properly, have nonslip bottoms and are in good condition. Be cautious when going up and down curbs, and walking on uneven sidewalks. If your balance is poor, consider using a cane or walker. Stay as active as you can. Balance, flexibility, strength, and endurance all come from exercise. They all play a role in preventing falls. If you have pets, know where they are before you stand up or walk so you don't trip over them. Limit alcohol intake. Alcohol can cause balance problems and increase the risk of falls. Use night lights. Have your eyes tested to be sure you are seeing well, even if you already wear glasses. Referrals: Len Askew MD [Primary Care Provider] - Disposition: HOME - Home Medications Comprehensive Discharge Medication List: Ambulatory Orders NK [No Known Home Medication] 08/11/19 This patient is new to me today: Yes Date on this admission: 08/12/19 Emergency Visit: Yes ED Registration Date: 08/10/19 Care time: The patient presented to the Emergency Department on the above date and was hospitalized for further evaluation of their emergent condition. Critical Care patient: No - Discharge Referral Referred to [facility] No
--- NOTE | 2019-08-12 21:14 | CONSULT ---
Consult - text type - Consultation Consultation Note: Podiatry Consultation: 74 year old female presented for hospital admission s/p fall and AMS. Podiatry consultation requested for overgrown thickened toe nails. 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 PMHx: diverticulitis/colitis, L hip fx Meds: noted ALL: NKMA CHARBEL: vascular: pedal pulses palpable 2/4, TG wnl, CFT brisk to all toes bilaterally. There are no ischemic changes to the foot bilaterally. The feet are warm and well perfused. There are varicosities and signs of venous stasis change bilaterally. neuro: epicritic and protective sensations grossly intact bilaterally. There are no focal motor or sensory deficits. derm: nails are elongated, overgrown, discolored, dystrophic, brittle, thickened with subungual debris x 10. There are no nail bed or distal tuft ulcers, no signs of infection Imp: 74 year old female with onychomycosis x 10 With verbal consent obtained, manual debridement of mycotic nails x 10 using nail nipper. The patient tolerated the procedure well without complication. We discussed appropriate foot hygiene. She was instructed to inspect her feet daily. Will f/u [address] [facility]. Thank you for the courtesy of this consultation. Alyssia Decker DPM
--- NOTE | 2019-08-13 01:16 | CONSULT ---
Consult Consult Specialty:: Endocrine Referred by:: Maliha Haynes MD Reason for Consultation:: dmt2 new onset - History of Present Illness Chief Complaint: fell at home History of Present Illness: 74 year old female with a past medical history of colitits and left hip fracture presented s/p fall and altered mental status. Patient remembered only that she fell at home and hit her bottom,got up and was able to walk it off.her family convinced her to go for evaluation,she was found to have new onset diabetes,she denies,vision loss,chest pain,nausea or vomiting. - Alcohol/Substance Use Hx Alcohol Use: No - Smoking History Smoking history: Never smoked Have you smoked in the past 12 months: No Aproximately how many cigarettes per day: 0 Home Medications - Allergies Allergies/Adverse Reactions: Allergies Allergy/AdvReac Type Severity Reaction Status Date / Time No Known Allergies Allergy Verified 08/10/19 14:36 - Home Medications Home Medications: Ambulatory Orders NK [No Known Home Medication] 08/11/19 Review of Systems - Review of Systems Constitutional: reports: Loss of Appetite, Weakness Eyes: reports: No Symptoms HENT: reports: No Symptoms Neck: reports: No Symptoms Cardiovascular: reports: No Symptoms Respiratory: reports: No Symptoms Gastrointestinal: reports: Constipation Genitourinary: reports: No Symptoms Breasts: reports: No Symptoms Reported Musculoskeletal: reports: Muscle Pain, Muscle Cramps Neurological: reports: Unsteady Gait, Weakness Physical Exam Vital Signs: Vital Signs Temperature 98.2 F 08/12/19 13:00 Pulse Rate 93 H 08/12/19 13:00 Respiratory Rate 20 08/12/19 13:00 Blood Pressure 139/95 08/12/19 13:00 O2 Sat by Pulse Oximetry (%) 100 08/11/19 21:00 Constitutional: Yes: Anxious Eyes: Yes: EOM Intact HENT: Yes: Normocephalic Neck: Yes: Trachea Midline Cardiovascular: Yes: Regular Rate and Rhythm Respiratory: Yes: CTA Bilaterally Gastrointestinal: Yes: Normal Bowel Sounds ...Rectal Exam: Yes: Deferred Renal/: Yes: WNL Musculoskeletal: Yes: WNL Extremities: Yes: WNL Edema: No Neurological: Yes: Alert, Oriented Labs: CBC, BMP 08/12/19 08:30 08/12/19 08:30 Problem List - Problems (1) Altered mental status Code(s): R41.82 - ALTERED MENTAL STATUS, UNSPECIFIED Qualifiers: Altered mental status type: disorientation Qualified Code(s): R41.0 - Disorientation, unspecified (2) Diabetes mellitus Code(s): E11.9 - TYPE 2 DIABETES MELLITUS WITHOUT COMPLICATIONS (3) Fall in elderly patient Code(s): R29.6 - REPEATED FALLS (4) Hypokalemia Code(s): E87.6 - HYPOKALEMIA (5) Rhabdomyolysis Code(s): M62.82 - RHABDOMYOLYSIS Qualifiers: Rhabdomyolysis type: traumatic Encounter type: initial encounter Qualified Code(s): T79.6XXA - Traumatic ischemia of muscle, initial encounter Assessment/Plan Current Active Problems Altered mental status (Acute) Diabetes mellitus (Acute) Fall in elderly patient (Acute) Hypokalemia (Acute) Rhabdomyolysis (Acute) Abnormal Lab Results 08/12/19 08/12/19 08:30 08:30 Anion Gap 5 L BUN 19.0 H Random Glucose 157 H Creatine Kinase 358 H Total Protein 5.8 L Albumin 2.7 L Laboratory Results - last 24 hr 08/12/19 08/12/19 08/12/19 08:30 08:30 08:30 WBC 7.2 RBC 4.36 Hgb 12.2 Hct 35.5 MCV 81.5 MCH 28.1 MCHC 34.4 RDW 15.1 Plt Count 250 MPV 8.1 Absolute Neuts (auto) 5.5 Neutrophils % 75.9 Lymphocytes % 15.1 D Monocytes % 8.4 Eosinophils % 0.1 Basophils % 0.5 Nucleated RBC % 0 Sodium 140 Potassium 3.7 Chloride 107 Carbon Dioxide 27 Anion Gap 5 L BUN 19.0 H Creatinine 0.6 Est GFR (CKD-EPI)AfAm 103.34 Est GFR (CKD-EPI)NonAf 89.16 Random Glucose 157 H Calcium 8.7 Total Bilirubin 0.7 AST 28 ALT 34 Alkaline Phosphatase 100 Creatine Kinase 358 H Creatine Kinase Index 0.6 CK-MB (CK-2) 2.2 Total Protein 5.8 L Albumin 2.7 L Triglycerides 110 Cholesterol 171 Total LDL Cholesterol 95 HDL Cholesterol 50 RPR Titer 08/12/19 08:30 WBC RBC Hgb Hct MCV MCH MCHC RDW Plt Count MPV Absolute Neuts (auto) Neutrophils % Lymphocytes % Monocytes % Eosinophils % Basophils % Nucleated RBC % Sodium Potassium Chloride Carbon Dioxide Anion Gap BUN Creatinine Est GFR (CKD-EPI)AfAm Est GFR (CKD-EPI)NonAf Random Glucose Calcium Total Bilirubin AST ALT Alkaline Phosphatase Creatine Kinase Creatine Kinase Index CK-MB (CK-2) Total Protein Albumin Triglycerides Cholesterol Total LDL Cholesterol HDL Cholesterol RPR Titer Cancelled Laboratory Tests 08/11/19 08/12/19 06:00 08:30 Random Glucose 157 H TSH 0.91 plan: bgm bid diet nutrition consult vns for follow up bgm metformin 500mg bid follow up outpatient
[2019-08-13] MEDS ORDERED: metFORMIN HCL 500 MG TABLET (FP) PO SCH (07:00)
--- NOTE | 2019-08-13 12:00 | PN ---
Progress Note, Physician History of Present Illness: Denies recurrent falls ambulating with walker assistance, denies chest pain, dyspnea, near or true syncope. - Current Medication List Current Medications: Active Medications Enoxaparin Sodium (Lovenox -) 40 mg SQ DAILY [facility] Last Admin: 08/12/19 11:19 Dose: 40 mg Lactated Ringer's (Lactated Ringers Solution) 1,000 ml in 1,000 mls @ 125 mls/ hr IV ASDIR [facility] Last Admin: 08/12/19 18:50 Dose: Not Given Metformin HCl (Glucophage -) 500 mg PO BID@0700,1630 [facility] Last Admin: 08/13/19 06:44 Dose: 500 mg - Objective Vital Signs: Vital Signs Temperature 98.4 F 08/13/19 04:00 Pulse Rate 67 08/13/19 04:00 Respiratory Rate 08/13/19 09:00 Blood Pressure 152/83 08/13/19 04:00 O2 Sat by Pulse Oximetry (%) 100 08/13/19 09:00 Constitutional: Yes: No Distress, Calm, Thin Neck: Yes: Supple Cardiovascular: Yes: Regular Rate and Rhythm Respiratory: Yes: Regular, CTA Bilaterally Gastrointestinal: Yes: Normal Bowel Sounds, Soft Edema: No Labs: CBC, BMP 08/12/19 08:30 08/12/19 08:30 INR, PTT INR 0.97 (0.83-1.09) 08/10/19 16:20 Problem List - Problems (1) Altered mental status Code(s): R41.82 - ALTERED MENTAL STATUS, UNSPECIFIED Qualifiers: Altered mental status type: disorientation Qualified Code(s): R41.0 - Disorientation, unspecified (2) Fall in elderly patient Code(s): R29.6 - REPEATED FALLS (3) Hypokalemia Code(s): E87.6 - HYPOKALEMIA (4) Rhabdomyolysis Code(s): M62.82 - RHABDOMYOLYSIS Qualifiers: Rhabdomyolysis type: traumatic Encounter type: initial encounter Qualified Code(s): T79.6XXA - Traumatic ischemia of muscle, initial encounter Assessment/Plan 08/11/2019 Renal US: No hydro, +urinary retention 1. Post fall/AMS - resolved currently A/Ox3 2. Rhabdomyolysis 3. Type 2 DM 4. Hypokalemia resolved PLAN: 1. Oral hydration 2. PT with gait training 3. Optimize glycemic control with metformin and DVT prophylaxis 4. D/c planning to SNF
[2019-08-13] MEDS: ENOXAPARIN NA (PORCINE) 40 MG/0.4 ML DISP.SYRIN SQ SCH (12:13)
--- NOTE | 2019-08-13 13:53 | ECHO ---
Name: RODO, EUGENIO Exam:Adult Echocardiogram Study Date: 08/13/2019 10:07 AM Age: 74 yrs Height: 60 in Weight: 120 lb BSA: 1.5 m2 MMode/2D Measurements & Calculations IVSd: 0.99 cm Ao root diam: 1.9 cm LVIDd: 3.0 cm LA dimension: 3.4 cm LVIDs: 2.2 cm ACS: 1.6 cm LVPWd: 1.0 cm EDV(Teich): 34.5 ml LVOT diam: 1.7 cm ESV(Teich): 17.0 ml RV S Anjum: 12.4 cm/sec Doppler Measurements & Calculations MV E max anjum: 88.4 cm/sec MVA(VTI): 1.4 cm2 MV A max anjum: 130.9 cm/sec MV V2 max: 133.7 cm/sec MV E/A: 0.68 MV max P.1 mmHg MV dec time: 0.26 sec MV V2 mean: 66.8 cm/sec MV mean P.2 mmHg MV V2 VTI: 31.3 cm Ao V2 max: 203.9 cm/sec AI max anjum: 487.1 cm/sec Ao max P.6 mmHg AI max P.9 mmHg Ao V2 mean: 132.5 cm/sec Ao mean P.0 mmHg AI dec slope: 323.1 cm/sec2 Ao V2 VTI: 42.5 cm CARRI(I,D): 1.0 cm2 AI P1/2t: 441.6 msec CARRI(V,D): 1.00 cm2 LV V1 max P.2 mmHg MR max anjum: 168.0 cm/sec LV V1 mean P.9 mmHg MR max P.3 mmHg LV V1 max: 89.1 cm/sec LV V1 mean: 64.3 cm/sec LV V1 VTI: 19.0 cm SV(LVOT): 43.3 ml TR max anjum: 202.6 cm/sec TR max P.2 mmHg PA V2 max: 112.4 cm/sec Med Peak E' Anjum: 5.8 cm/sec PA max P.1 mmHg Med E/e': 15.1 Lat Peak E' Anjum: 11.1 cm/sec Lat E/e': 8.0 Procedure The study was technically difficult with many images being suboptimal in quality. Left Ventricle The left ventricular size, thickness and function are normal. The left ventricular ejection fraction is normal. E/A reversal consistent with but not diagnostic of poor LV compliance. Regional wall motion abnormalities cannot be excluded due to limited visualization. Right Ventricle The right ventricle is not well visualized. Atria Normal left and right atrial size and function. Mitral Valve There is mild mitral valve thickening. There is no mitral valve stenosis. There is trace mitral regur gitation. Tricuspid Valve The tricuspid valve is not well visualized. There is no tricuspid stenosis. There is trace tricuspid regurgitation. Right ventricular systolic pressure is normal. Aortic Valve The aortic valve is trileaflet. No hemodynamically significant valvular aortic stenosis. Mild aortic regurgitation. Pulmonic Valve The pulmonic valve is not well visualized. Great Vessels The aortic root is normal size. Pericardium/Pleura There is no pericardial effusion. Interpretation Summary There is trace tricuspid regurgitation. Right ventricular systolic pressure is normal. The left ventricular ejection fraction is normal. The left ventricular size, thickness and function are normal E/A reversal consistent with but not diagnostic of poor LV compliance Mild aortic regurgitation. There is trace mitral regurgitation. MD Eleuterio Mario 08/13/2019 01:52 PM
--- NOTE | 2019-08-13 14:29 | PN ---
Progress Note, Physician Chief Complaint: No new complaint - Current Medication List Current Medications: Active Medications Enoxaparin Sodium (Lovenox -) 40 mg SQ DAILY [facility] Last Admin: 08/13/19 12:13 Dose: 40 mg Metformin HCl (Glucophage -) 500 mg PO BID@0700,1630 [facility] Last Admin: 08/13/19 06:44 Dose: 500 mg - Objective Vital Signs: Vital Signs Temperature 98.8 F 08/13/19 10:00 Pulse Rate 82 08/13/19 10:00 Respiratory Rate 18 08/13/19 10:00 Blood Pressure 121/66 08/13/19 10:00 O2 Sat by Pulse Oximetry (%) 100 08/13/19 09:00 General: Elderly woman, comfortable, not in distress HEENT; mucous membranes moist, no anemia, no jaundice, PERRLA, no nystagmus Neck: No JVD, supple, no bruit, thyroid palpably normal, normal carotid pulsations. Chest: Nontender, clear to auscultation bilaterally/bilateral wheezing/ bilateral basal rales. CVS: S1-S2 regular/irregular no murmur/gallop/rub Abdomen: Nondistended, soft, bowel sounds present. Extremities: No edema., No calf tenderness, pulses present [employer]: AO X3 , no gross motor sensory deficit Labs: CBC, BMP 08/12/19 08:30 08/12/19 08:30 INR, PTT INR 0.97 (0.83-1.09) 08/10/19 16:20 Problem List - Problems (1) Fall in elderly patient Assessment/Plan: Evaluate whether PT recommended subacute rehab Problems reviewed: Yes Code(s): R29.6 - REPEATED FALLS (2) Diabetes mellitus Assessment/Plan: Optimize glycemic control on Problems reviewed: Yes Code(s): E11.9 - TYPE 2 DIABETES MELLITUS WITHOUT COMPLICATIONS
[2019-08-13 15:33] VITALS: BP 127/68; PULSE 78; TEMP 98.7
== END 2019-08-13 16:44 | DRG 558 ==
LOC: JER 14:04 → JERBED 20:37 → J8W 08-11 15:35
PROVIDERS: ADMIT Internal Medicine; ATTEND Internal Medicine
PROC: 0HBRXZZ Excision of Toe Nail, External Approach (ICD-10-PCS; principal; 2019-08-12)
PROC: 0HBRXZZ Excision of Toe Nail, External Approach (ICD-10-PCS; 2019-08-12)
PROC: 0HBRXZZ Excision of Toe Nail, External Approach (ICD-10-PCS; 2019-08-12)
PROC: 0HBRXZZ Excision of Toe Nail, External Approach (ICD-10-PCS; 2019-08-12)
PROC: 0HBRXZZ Excision of Toe Nail, External Approach (ICD-10-PCS; 2019-08-12)
PROC: 0HBRXZZ Excision of Toe Nail, External Approach (ICD-10-PCS; 2019-08-12)
PROC: 0HBRXZZ Excision of Toe Nail, External Approach (ICD-10-PCS; 2019-08-12)
PROC: 0HBRXZZ Excision of Toe Nail, External Approach (ICD-10-PCS; 2019-08-12)
PROC: 0HBRXZZ Excision of Toe Nail, External Approach (ICD-10-PCS; 2019-08-12)
PROC: 0HBRXZZ Excision of Toe Nail, External Approach (ICD-10-PCS; 2019-08-12)
DX: M62.82 Rhabdomyolysis (principal); D64.9 Anemia, unspecified; D72.829 Elevated white blood cell count, unspecified; E11.9 Type 2 diabetes mellitus without complications; R29.6 Repeated falls; E87.6 Hypokalemia; R41.82 Altered mental status, unspecified; B35.1 Tinea unguium
CPT/HCPCS: 36415; 70450-TC; 71046-TC-FY; 71250-TC; 72125-TC; 72170-TC-FY; 76775-TC; 76856-TC; 80048; 80053; 80061; 81003; 82550; 82553; 82607; 82962; 83036; 83721; 83735; 84100; 84443; 84484; 85025; 85610; 85730; 86593; 86850; 86900; 86901; 87086; 87186; 87804; 93005; 93010; 93306-TC; 97116-GP; 97161-GP; 99285-25

== ENCOUNTER 2021-03-02 16:46 | Observation (INO) | payer OTHER, MEDICARE ==
[2021-03-02 17:18] VITALS: BMI 24.5
[2021-03-02] MEDS ORDERED: SODIUM CHLORIDE 0.9% 500 ML INFUS.BAG IV ONE (17:38)
[2021-03-02 18:13] LABS: BASO % 0.3 % (0-2.0); HEMATOCRIT 36.4 % (32.4-45.2); HEMOGLOBIN 12.7 GM/dL (10.7-15.3); MCH 28.9 pg (25.7-33.7); MCHC 34.9 g/dl (32.0-36.0); MEAN CELL VOLUME 82.9 fl (80-96); MEAN PLT VOLUME 8.1 fl (7.5-11.1); MONO % 13.6 % (3.8-10.2); NEUT % 81.1 % (42.8-82.8); PLATELET COUNT 180 10^3/uL (134-434); RDW 14.9 % (11.6-15.6); WHITE BLOOD COUNT 7.2 K/mm3 (4.0-10.0)
[2021-03-02 18:30] LABS: CHLORIDE 102 mmol/L (98-107); SODIUM 137 mmol/L (136-145)
[2021-03-02 18:32] LABS: CALCIUM 8.8 mg/dL (8.5-10.1)
[2021-03-02 18:33] LABS: ALBUMIN 3.7 g/dl (3.4-5.0); ANION GAP 10 MMOL/L (8-16); BLOOD UREA NITROGEN 17.8 mg/dL (7-18); CO2 25 mmol/L (21-32); GLUCOSE,RANDOM 124 mg/dL (74-106); MAGNESIUM 1.9 mg/dL (1.8-2.4)
[2021-03-02 18:36] LABS: CREATININE 0.8 mg/dL (0.55-1.3); PHOSPHOROUS 2.7 mg/dL (2.5-4.9); SGOT/AST 13 U/L (15-37); SGPT/ALT 17 U/L (13-61)
[2021-03-02 18:37] LABS: BILIRUBIN,TOTAL 0.7 mg/dL (0.2-1)
[2021-03-02 18:38] LABS: TOT PROT 6.8 g/dl (6.4-8.2)
[2021-03-02 18:39] LABS: ALK PHOS 100 U/L (45-117)
[2021-03-02 18:48] LABS: PH,URINE 5.5 (5.0-8.0); URINE APPEARANCE CLEAR; URINE BILIRUBIN NEGATIVE (NEGATIVE); URINE COLOR YELLOW; URINE GLUCOSE (UA) NEGATIVE (NEGATIVE); URINE KETONE NEGATIVE (NEGATIVE); URINE LEUK ESTERASE NEGATIVE (NEGATIVE); URINE NITRITE NEGATIVE (NEGATIVE); URINE PROTEIN NEGATIVE (NEGATIVE)
[2021-03-03] MEDS: INSULIN SLIDING SCALE (NOVOLOG) 1 VIAL SQ SCH ×2 (06:30→13:42)
[2021-03-03] MEDS ORDERED: ASPIRIN COATED 81 MG TABLET.EC PO SCH (10:00)
[2021-03-03] MEDS ORDERED: ASPIRIN COATED 81 MG TABLET.EC ONE (10:31)
[2021-03-03 15:00] VITALS: BP 153/65; PULSE 88; TEMP 98.5
== END 2021-03-03 16:59 | disposition home or self-care (01) ==
LOC: JER 16:46 → JERBED 22:13 → INTOOBSV 22:13
PROVIDERS: ADMIT Internal Medicine; ATTEND Internal Medicine
PROC: 3E0337Z Introduction of Electrolytic and Water Balance Substance into Peripheral Vein, Percutaneous Approach (ICD-10-PCS; principal; 2021-03-02)
DX: U07.1 COVID-19 (principal); R53.1 Weakness; E11.9 Type 2 diabetes mellitus without complications; K52.9 Noninfective gastroenteritis and colitis, unspecified; F03.90 Unspecified dementia, unspecified severity, without behavioral disturbance, psychotic disturbance, mood disturbance, and anxiety
CPT/HCPCS: 36415; 70450-TC; 71046-TC-FY; 80053; 81003; 82550; 82962; 83735; 84100; 84443; 84484; 85025; 85379; 86140; 86769; 93005; 93010; 96360; 99285-25; C9803; G0378; U0003; U0005

== ENCOUNTER 2021-11-10 14:09 | Emergency (ER) | payer OTHER, MEDICARE ==
[2021-11-10 14:24] VITALS: BMI 21.1
[2021-11-10 19:46] VITALS: BP 127/68; PULSE 66; TEMP 98.3
== END 2021-11-10 20:05 ==
LOC: JER 14:09
DX: N82.9 Female genital tract fistula, unspecified (principal)
CPT/HCPCS: 99281-25

== ENCOUNTER 2023-10-19 16:13 | Inpatient (IN) | payer OTHER, MEDICARE ==
[2023-10-19 17:34] LABS: BASO % 0.7 % (0-2.0); EOS % 0.2 % (0-4.5); HEMATOCRIT 31.7 % (32.4-45.2); HEMOGLOBIN 10.9 GM/dL (10.7-15.3); LYMPH % 17.8 % (8-40); MCH 29.5 pg (25.7-33.7); MCHC 34.3 g/dl (32.0-36.0); MEAN CELL VOLUME 85.9 fl (80-96); MEAN PLT VOLUME 7.7 fl (7.5-11.1); MONO % 8.5 % (3.8-10.2); NEUT % 72.8 % (42.8-82.8); PLATELET COUNT 275 10^3/uL (134-434); RBC 3.69 M/mm3 (3.60-5.2); RDW 14.8 % (11.6-15.6); WHITE BLOOD COUNT 6.1 K/mm3 (4.0-10.0)
[2023-10-19] MEDS ORDERED: PIPERACILLIN/TAZOB 4.5 GM 4.5 GM/100 ML BAG IVPB ONE (17:43)
[2023-10-19] MEDS: PIPERACILLIN/TAZOB 4.5 GM 4.5 GM in DEXTROSE 5%-WATER 100 ML IVPB ONE (17:44)
[2023-10-19 18:08] LABS: POTASSIUM 4.3 mmol/L (3.5-5.1)
[2023-10-19] MEDS ORDERED: VANCOMYCIN 1 GRAM (PRE-DOCKED) 1,000 MG/250 ML BAG IVPB ONE (18:08)
[2023-10-19 18:10] LABS: ALBUMIN 3.4 g/dl (3.4-5.0); CALCIUM 9.3 mg/dL (8.5-10.1)
[2023-10-19] MEDS: VANCOMYCIN 1,000 MG in DEXTROSE 5%-WATER - 250 ML IVPB ONE (18:10)
[2023-10-19 18:13] LABS: CREATININE 0.9 mg/dL (0.55-1.3)
[2023-10-19 18:15] LABS: BILIRUBIN,TOTAL 0.3 mg/dL (0.2-1); TOT PROT 6.6 g/dl (6.4-8.2)
[2023-10-20 08:34] VITALS: BMI 18.1
[2023-10-20] MEDS: INSULIN ASPART SLIDING SCALE (NOVOLOG) 1 VIAL SQ SCH (08:36)
[2023-10-20] MEDS: SODIUM CHLORIDE 1,000 ML IV SCH (08:36)
[2023-10-20 09:00] LABS: BASO % 0.4 % (0-2.0); EOS % 0.1 % (0-4.5); HEMATOCRIT 30.6 % (32.4-45.2); HEMOGLOBIN 10.9 GM/dL (10.7-15.3); LYMPH % 13.4 % (8-40); MCH 29.9 pg (25.7-33.7); MCHC 35.6 g/dl (32.0-36.0); MEAN CELL VOLUME 83.8 fl (80-96); MEAN PLT VOLUME 8.1 fl (7.5-11.1); MONO % 6.6 % (3.8-10.2); NEUT % 79.5 % (42.8-82.8); PLATELET COUNT 276 10^3/uL (134-434); RBC 3.65 M/mm3 (3.60-5.2); RDW 14.9 % (11.6-15.6); WHITE BLOOD COUNT 6.4 K/mm3 (4.0-10.0)
[2023-10-20 09:20] LABS: POTASSIUM 3.9 mmol/L (3.5-5.1)
[2023-10-20 09:25] LABS: ALBUMIN 3.6 g/dl (3.4-5.0)
[2023-10-20 09:26] LABS: BLOOD UREA NITROGEN 21.1 mg/dL (7-18); CALCIUM 9.5 mg/dL (8.5-10.1); MAGNESIUM 1.9 mg/dL (1.8-2.4)
[2023-10-20 09:29] LABS: CREATININE 0.8 mg/dL (0.55-1.3); PHOSPHOROUS 3.1 mg/dL (2.5-4.9)
[2023-10-20 09:30] LABS: BILIRUBIN,TOTAL 0.6 mg/dL (0.2-1); TOT PROT 6.6 g/dl (6.4-8.2)
[2023-10-20] MEDS ORDERED: CEFTRIAXONE 1 GM in DEXTROSE 5%-WATER - 50 ML IVPB SCH (10:00)
[2023-10-20] MEDS: ENOXAPARIN NA (PORCINE) 40 MG/0.4 ML DISP.SYRIN SQ SCH (11:44)
[2023-10-20] MEDS ORDERED: INSULIN (NOVOLOG) ASPART 100 UNITS/ML 10ML VIAL ONE (13:39)
[2023-10-20] MEDS ORDERED: VANCOMYCIN 750 MG in DEXTROSE 5%-WATER - 150 ML IVPB SCH (22:00)
[2023-10-20] MEDS: VANCOMYCIN/WATER FOR INJ (PEG) 750 MG/150 ML BAG IVPB SCH (22:52)
[2023-10-21 08:34] LABS: BASO % 0.8 % (0-2.0); EOS % 0.3 % (0-4.5); HEMATOCRIT 30.3 % (32.4-45.2); HEMOGLOBIN 10.5 GM/dL (10.7-15.3); LYMPH % 18.3 % (8-40); MCH 29.8 pg (25.7-33.7); MCHC 34.5 g/dl (32.0-36.0); MEAN CELL VOLUME 86.3 fl (80-96); MONO % 10.9 % (3.8-10.2); NEUT % 69.7 % (42.8-82.8); PLATELET COUNT 258 10^3/uL (134-434); RBC 3.51 M/mm3 (3.60-5.2); RDW 14.6 % (11.6-15.6); WHITE BLOOD COUNT 5.2 K/mm3 (4.0-10.0)
[2023-10-21 08:54] LABS: POTASSIUM 4.1 mmol/L (3.5-5.1)
[2023-10-21 08:55] LABS: ALBUMIN 3.2 g/dl (3.4-5.0)
[2023-10-21 08:56] LABS: BLOOD UREA NITROGEN 18.9 mg/dL (7-18); MAGNESIUM 1.8 mg/dL (1.8-2.4)
[2023-10-21 08:59] LABS: CREATININE 0.7 mg/dL (0.55-1.3)
[2023-10-21 09:00] LABS: BILIRUBIN,TOTAL 0.4 mg/dL (0.2-1)
[2023-10-21] MEDS ORDERED: INSULIN (NOVOLOG) ASPART 100 UNITS/ML 10ML VIAL ONE (17:01)
[2023-10-22 10:05] LABS: BASO % 0.7 % (0-2.0); EOS % 0.1 % (0-4.5); HEMATOCRIT 29.4 % (32.4-45.2); HEMOGLOBIN 10.5 GM/dL (10.7-15.3); LYMPH % 22.7 % (8-40); MCH 29.8 pg (25.7-33.7); MCHC 35.5 g/dl (32.0-36.0); MEAN CELL VOLUME 83.7 fl (80-96); MEAN PLT VOLUME 7.8 fl (7.5-11.1); MONO % 9.4 % (3.8-10.2); NEUT % 67.1 % (42.8-82.8); PLATELET COUNT 270 10^3/uL (134-434); RBC 3.52 M/mm3 (3.60-5.2); RDW 15.1 % (11.6-15.6); WHITE BLOOD COUNT 4.2 K/mm3 (4.0-10.0)
[2023-10-22 10:23] LABS: POTASSIUM 3.7 mmol/L (3.5-5.1)
[2023-10-22 10:37] LABS: ALBUMIN 3.3 g/dl (3.4-5.0); CALCIUM 9.2 mg/dL (8.5-10.1)
[2023-10-22 10:39] LABS: BLOOD UREA NITROGEN 19.3 mg/dL (7-18); MAGNESIUM 1.9 mg/dL (1.8-2.4)
[2023-10-22 10:42] LABS: CREATININE 0.7 mg/dL (0.55-1.3)
[2023-10-22 10:43] LABS: BILIRUBIN,TOTAL 0.5 mg/dL (0.2-1); TOT PROT 6.2 g/dl (6.4-8.2)
[2023-10-22] MEDS: VANCOMYCIN/WATER FOR INJ (PEG) 750 MG/150 ML BAG IVPB SCH ×2 (17:23→17:25)
[2023-10-23 08:29] LABS: BASO % 1.1 % (0-2.0); EOS % 0.1 % (0-4.5); HEMATOCRIT 31.9 % (32.4-45.2); HEMOGLOBIN 11.1 GM/dL (10.7-15.3); LYMPH % 24.4 % (8-40); MCH 29.5 pg (25.7-33.7); MCHC 34.7 g/dl (32.0-36.0); MEAN PLT VOLUME 7.8 fl (7.5-11.1); MONO % 9.9 % (3.8-10.2); NEUT % 64.5 % (42.8-82.8); PLATELET COUNT 300 10^3/uL (134-434); RBC 3.75 M/mm3 (3.60-5.2); RDW 14.5 % (11.6-15.6); WHITE BLOOD COUNT 4.4 K/mm3 (4.0-10.0)
[2023-10-23 08:32] LABS: POTASSIUM 3.9 mmol/L (3.5-5.1)
[2023-10-23 08:41] LABS: CALCIUM 9.6 mg/dL (8.5-10.1)
[2023-10-23 08:42] LABS: ALBUMIN 3.3 g/dl (3.4-5.0); BLOOD UREA NITROGEN 22.6 mg/dL (7-18)
[2023-10-23 08:44] LABS: CREATININE 0.6 mg/dL (0.55-1.3)
[2023-10-23 08:46] LABS: BILIRUBIN,TOTAL 0.5 mg/dL (0.2-1); TOT PROT 6.4 g/dl (6.4-8.2)
[2023-10-23] MEDS: MULTIVITAMINS (DAILY MVI) TABLET (FP) PO SCH (11:20)
[2023-10-24 08:46] LABS: BASO % 0.8 % (0-2.0); EOS % 0.1 % (0-4.5); HEMATOCRIT 31.5 % (32.4-45.2); HEMOGLOBIN 10.9 GM/dL (10.7-15.3); LYMPH % 23.8 % (8-40); MCH 29.5 pg (25.7-33.7); MCHC 34.5 g/dl (32.0-36.0); MEAN CELL VOLUME 85.3 fl (80-96); MEAN PLT VOLUME 7.7 fl (7.5-11.1); MONO % 12.1 % (3.8-10.2); NEUT % 63.2 % (42.8-82.8); PLATELET COUNT 305 10^3/uL (134-434); RDW 14.8 % (11.6-15.6); WHITE BLOOD COUNT 5.2 K/mm3 (4.0-10.0)
[2023-10-24 09:01] LABS: CALCIUM 9.3 mg/dL (8.5-10.1)
[2023-10-24 09:02] LABS: ALBUMIN 3.3 g/dl (3.4-5.0); BLOOD UREA NITROGEN 26.4 mg/dL (7-18)
[2023-10-24 09:04] LABS: CREATININE 0.7 mg/dL (0.55-1.3)
[2023-10-24 09:07] LABS: BILIRUBIN,TOTAL 0.4 mg/dL (0.2-1); TOT PROT 6.2 g/dl (6.4-8.2)
[2023-10-24] MEDS ORDERED: INSULIN (NOVOLOG) ASPART 100 UNITS/ML 10ML VIAL ONE (11:38)
[2023-10-25 07:44] LABS: BASO % 1.2 % (0-2.0); EOS % 0.4 % (0-4.5); HEMOGLOBIN 10.6 GM/dL (10.7-15.3); LYMPH % 28.2 % (8-40); MCH 29.5 pg (25.7-33.7); MCHC 34.2 g/dl (32.0-36.0); MEAN CELL VOLUME 86.1 fl (80-96); MEAN PLT VOLUME 7.7 fl (7.5-11.1); MONO % 11.6 % (3.8-10.2); NEUT % 58.6 % (42.8-82.8); PLATELET COUNT 281 10^3/uL (134-434); RDW 14.9 % (11.6-15.6); WHITE BLOOD COUNT 4.9 K/mm3 (4.0-10.0)
[2023-10-25 08:12] LABS: POTASSIUM 4.2 mmol/L (3.5-5.1)
[2023-10-25 08:13] LABS: ALBUMIN 3.3 g/dl (3.4-5.0); BLOOD UREA NITROGEN 31.1 mg/dL (7-18); CALCIUM 9.1 mg/dL (8.5-10.1)
[2023-10-25 08:17] LABS: CREATININE 0.6 mg/dL (0.55-1.3)
[2023-10-25 08:18] LABS: BILIRUBIN,TOTAL 0.3 mg/dL (0.2-1); TOT PROT 6.1 g/dl (6.4-8.2)
[2023-10-25] MEDS: AMOX TR/POT CLAV 875MG/125MG TABLETS (FP) PO SCH (08:53)
[2023-10-25] MEDS ORDERED: INSULIN (NOVOLOG) ASPART 100 UNITS/ML 10ML VIAL ONE (11:39)
[2023-10-25] MEDS: LACTOBACILLUS ACIDOPHILUS 1 TABLET PO SCH (12:57)
[2023-10-25 14:12] VITALS: BP 117/83; PULSE 63; RESP 18; TEMP 97.6
== END 2023-10-25 15:21 | disposition home health service (06) | DRG 637 ==
LOC: JER 16:13 → JERBED 23:10 → OBSVTOIN 10-20 02:47 → J8W 10-20 03:34
PROVIDERS: ADMIT Student in an Organized Health Care Education/Training Program; ATTEND Nurse Practitioner Acute Care
DX: E11.621 Type 2 diabetes mellitus with foot ulcer (principal); E43 Unspecified severe protein-calorie malnutrition; M86.8X7 Other osteomyelitis, ankle and foot; Z68.1 Body mass index [BMI] 19.9 or less, adult; L03.031 Cellulitis of right toe; F03.90 Unspecified dementia, unspecified severity, without behavioral disturbance, psychotic disturbance, mood disturbance, and anxiety; I10 Essential (primary) hypertension; E11.69 Type 2 diabetes mellitus with other specified complication; L97.519 Non-pressure chronic ulcer of other part of right foot with unspecified severity
CPT/HCPCS: 36415; 72192-TC; 73630-TC-RT-FY; 73700-TC-RT; 74176-TC; 80053; 82962; 83735; 84100; 85025; 85651; 86140; 87040; 87635; 93005; 93010; 97116-GP; 97161-GP; 99285-25; G0378

== ENCOUNTER 2023-11-04 16:09 | Inpatient (IN) | payer OTHER, MEDICARE ==
[2023-11-04 17:55] LABS: BASO % 0.8 % (0-2.0); EOS % 0.1 % (0-4.5); HEMATOCRIT 32.9 % (32.4-45.2); HEMOGLOBIN 11.4 GM/dL (10.7-15.3); LYMPH % 14.5 % (8-40); MCH 29.7 pg (25.7-33.7); MCHC 34.7 g/dl (32.0-36.0); MEAN CELL VOLUME 85.5 fl (80-96); MEAN PLT VOLUME 7.9 fl (7.5-11.1); MONO % 8.2 % (3.8-10.2); NEUT % 76.4 % (42.8-82.8); PLATELET COUNT 284 10^3/uL (134-434); RBC 3.85 M/mm3 (3.60-5.2); RDW 15.2 % (11.6-15.6); WHITE BLOOD COUNT 6.7 K/mm3 (4.0-10.0)
[2023-11-04 18:22] LABS: CHLORIDE 104 mmol/L (98-107); POTASSIUM 4.4 mmol/L (3.5-5.1); SODIUM 134 mmol/L (136-145)
[2023-11-04 18:23] LABS: CALCIUM 9.5 mg/dL (8.5-10.1)
[2023-11-04 18:24] LABS: ALBUMIN 3.4 g/dl (3.4-5.0); ANION GAP 4 mmol/L (4-13); CO2 26 mmol/L (21-32); GLUCOSE,RANDOM 112 mg/dL (74-106)
[2023-11-04 18:27] LABS: CREATININE 0.8 mg/dL (0.55-1.3); SGOT/AST 18 U/L (15-37); SGPT/ALT 19 U/L (13-61)
[2023-11-04 18:29] LABS: BILIRUBIN,TOTAL 0.2 mg/dL (0.2-1); TOT PROT 6.5 g/dl (6.4-8.2)
[2023-11-04 18:30] LABS: ALK PHOS 94 U/L (45-117)
[2023-11-04 18:49] LABS: ERYTHROCYTE SEDIMENTATION RATE 11 mm/hr (0-30)
[2023-11-04] MEDS ORDERED: PIPERACILLIN/TAZOB 3.375 GM 3.375 GM/50 ML BAG IVPB ONE (20:28)
[2023-11-04] MEDS ORDERED: VANCOMYCIN 1 GRAM (PRE-DOCKED) 1,000 MG/250 ML BAG IVPB ONE (20:28)
[2023-11-04] MEDS: PIPERACILLIN/TAZOB 3.375 GM 3.375 GM in DEXTROSE 5%-WATER - 50 ML IVPB ONE (20:39)
[2023-11-04] MEDS: VANCOMYCIN 1,000 MG in DEXTROSE 5%-WATER - 250 ML IVPB ONE (21:07)
[2023-11-05] MEDS ORDERED: PIPERACILLIN/TAZOB 2.25 GM 2.25 GM/50 ML BAG IVPB ONE (03:29)
[2023-11-05] MEDS: PIPERACILLIN/TAZOB 2.25 GM 2.25 GM in DEXTROSE 5%-WATER - 50 ML IVPB SCH (03:35)
[2023-11-05 05:46] VITALS: BMI 14.3
[2023-11-05] MEDS: INSULIN ASPART SLIDING SCALE (NOVOLOG) 1 VIAL SQ SCH (06:56)
[2023-11-05 08:14] LABS: BASO % 0.7 % (0-2.0); EOS % 0.2 % (0-4.5); HEMATOCRIT 33.1 % (32.4-45.2); HEMOGLOBIN 11.6 GM/dL (10.7-15.3); LYMPH % 17.4 % (8-40); MCH 29.6 pg (25.7-33.7); MEAN CELL VOLUME 84.7 fl (80-96); MEAN PLT VOLUME 8.1 fl (7.5-11.1); MONO % 8.5 % (3.8-10.2); NEUT % 73.2 % (42.8-82.8); PLATELET COUNT 287 10^3/uL (134-434); RBC 3.91 M/mm3 (3.60-5.2); RDW 14.8 % (11.6-15.6)
[2023-11-05 08:46] LABS: POTASSIUM 4.4 mmol/L (3.5-5.1)
[2023-11-05 08:55] LABS: CREATININE 0.7 mg/dL (0.55-1.3)
[2023-11-05 08:56] LABS: CALCIUM 9.7 mg/dL (8.5-10.1); MAGNESIUM 2.1 mg/dL (1.8-2.4)
[2023-11-05 08:57] LABS: TOT PROT 6.6 g/dl (6.4-8.2)
[2023-11-05 09:05] LABS: ALBUMIN 3.5 g/dl (3.4-5.0); PHOSPHOROUS 3.4 mg/dL (2.5-4.9)
[2023-11-05 09:06] LABS: BILIRUBIN,TOTAL 0.5 mg/dL (0.2-1)
[2023-11-05 09:08] LABS: BLOOD UREA NITROGEN 20.7 mg/dL (7-18)
[2023-11-05] MEDS: ALPRAZolam 0.25 MG TABLET PO SCH (09:19)
[2023-11-05] MEDS: LISINOPRIL 5 MG TABLET PO SCH (09:19)
[2023-11-05] MEDS: ASPIRIN COATED 81 MG TABLET.EC PO SCH (09:19)
[2023-11-05] MEDS: ENOXAPARIN NA (PORCINE) 40 MG/0.4 ML DISP.SYRIN SQ SCH (09:20)
[2023-11-05] MEDS ORDERED: SULFAMETHOXAZOLE/TRIMETHOPRIM 400MG/80MG S.S. TABLET PO SCH (10:00)
[2023-11-05] MEDS: QUEtiapine FUMARATE 50 MG TABLET PO SCH (21:56)
[2023-11-06] MEDS ORDERED: PIPERACILLIN/TAZOB 2.25 GM 2.25 GM in DEXTROSE 5%-WATER - 50 ML IVPB SCH (03:00)
[2023-11-06 08:03] VITALS: RESP 16
[2023-11-06 08:22] VITALS: BP 92/54; PULSE 52; TEMP 98.7
== END 2023-11-06 10:12 | disposition home or self-care (01) | DRG 301 ==
LOC: JER 16:09 → JERBED 20:19 → OBSVTOIN 22:31 → J6S 11-05 04:41
PROVIDERS: ADMIT Internal Medicine; ATTEND Internal Medicine
DX: E11.51 Type 2 diabetes mellitus with diabetic peripheral angiopathy without gangrene (principal); F03.90 Unspecified dementia, unspecified severity, without behavioral disturbance, psychotic disturbance, mood disturbance, and anxiety; I10 Essential (primary) hypertension; M21.612 Bunion of left foot; M21.611 Bunion of right foot; L03.031 Cellulitis of right toe; Z74.01 Bed confinement status; Z86.73 Personal history of transient ischemic attack (TIA), and cerebral infarction without residual deficits
CPT/HCPCS: 36415; 73700-TC-RT; 80053; 80061; 82962; 83036; 83735; 84100; 85025; 85651; 86140; 87077; 87081; 93005; 93010; 99285-25; G0378

== ENCOUNTER 2023-11-06 16:34 | Emergency (ER) | payer OTHER, MEDICARE ==
[2023-11-06 16:50] VITALS: BMI 14.0
[2023-11-07 01:34] VITALS: BP 134/71; PULSE 63; RESP 19; TEMP 98.1
== END 2023-11-07 05:35 | disposition home or self-care (01) ==
LOC: JER 16:34
DX: S91.105A Unspecified open wound of left lesser toe(s) without damage to nail, initial encounter (principal)
CPT/HCPCS: 99283-25

== ENCOUNTER 2023-11-14 12:24 | Inpatient (IN) | payer OTHER, MEDICARE ==
[2023-11-14 13:53] LABS: BASO % 0.8 % (0-2.0); EOS % 0.1 % (0-4.5); HEMOGLOBIN 12.2 GM/dL (10.7-15.3); LYMPH % 22.1 % (8-40); MCH 29.7 pg (25.7-33.7); MCHC 34.8 g/dl (32.0-36.0); MEAN CELL VOLUME 85.4 fl (80-96); MEAN PLT VOLUME 7.7 fl (7.5-11.1); MONO % 8.9 % (3.8-10.2); NEUT % 68.1 % (42.8-82.8); PLATELET COUNT 272 10^3/uL (134-434); RDW 14.9 % (11.6-15.6); WHITE BLOOD COUNT 5.2 K/mm3 (4.0-10.0)
[2023-11-14 13:59] LABS: INR 0.98 (0.83-1.09); PROTHROMBIN TIME (PATIENT) 11.4 SEC (9.7-13.0)
[2023-11-14 14:02] LABS: ACTIVATED PTT 30.5 SECONDS (25.2-36.5)
[2023-11-14 14:16] LABS: POTASSIUM 4.6 mmol/L (3.5-5.1)
[2023-11-14 14:18] LABS: CALCIUM 9.8 mg/dL (8.5-10.1)
[2023-11-14 14:19] LABS: ALBUMIN 3.7 g/dl (3.4-5.0); BLOOD UREA NITROGEN 22.2 mg/dL (7-18)
[2023-11-14 14:22] LABS: CREATININE 0.8 mg/dL (0.55-1.3)
[2023-11-14 14:23] LABS: BILIRUBIN,TOTAL 0.4 mg/dL (0.2-1); TOT PROT 6.8 g/dl (6.4-8.2)
[2023-11-14] MEDS ORDERED: CEFTRIAXONE 2 GM/100 ML BAG IVPB ONE (14:55)
[2023-11-14] MEDS: CEFTRIAXONE 2,000 MG in DEXTROSE 5%-WATER - 50 ML IVPB ONE (15:00)
[2023-11-14 17:37] VITALS: BMI 14.3
[2023-11-14] MEDS: QUEtiapine FUMARATE 50 MG TABLET PO SCH (21:57)
[2023-11-14] MEDS: HEPARIN NA (PORCINE) 5,000 UNITS/ML 1ML VIAL SQ SCH (21:57)
[2023-11-15] MEDS: ASPIRIN COATED 81 MG TABLET.EC PO SCH (09:51)
[2023-11-15] MEDS: LISINOPRIL 5 MG TABLET PO SCH (09:51)
[2023-11-15] MEDS: CEFTRIAXONE 2 GM in DEXTROSE 5%-WATER 100 ML IVPB SCH (14:41)
[2023-11-15] MEDS: AMINO ACIDS/PROTEIN HYDROLYS 30 ML LIQUID.PKT PO SCH (17:34)
[2023-11-16] MEDS: LORazepam 2 MG/ML SDV VIAL IVPUSH ONE (17:17)
[2023-11-16] MEDS: SODIUM CHLORIDE 1,000 ML IV SCH (18:46)
[2023-11-17 07:40] LABS: BASO % 0.9 % (0-2.0); EOS % 0.4 % (0-4.5); HEMATOCRIT 33.4 % (32.4-45.2); HEMOGLOBIN 11.7 GM/dL (10.7-15.3); LYMPH % 24.6 % (8-40); MCH 30.1 pg (25.7-33.7); MEAN CELL VOLUME 85.8 fl (80-96); MEAN PLT VOLUME 7.6 fl (7.5-11.1); MONO % 12.7 % (3.8-10.2); NEUT % 61.4 % (42.8-82.8); PLATELET COUNT 242 10^3/uL (134-434); RBC 3.89 M/mm3 (3.60-5.2); RDW 15.3 % (11.6-15.6)
[2023-11-17 08:16] LABS: POTASSIUM 4.6 mmol/L (3.5-5.1)
[2023-11-17 08:19] LABS: CALCIUM 9.5 mg/dL (8.5-10.1)
[2023-11-17 08:20] LABS: ALBUMIN 3.3 g/dl (3.4-5.0); MAGNESIUM 2.3 mg/dL (1.8-2.4)
[2023-11-17 08:23] LABS: CREATININE 0.6 mg/dL (0.55-1.3)
[2023-11-17 08:25] LABS: BILIRUBIN,TOTAL 0.5 mg/dL (0.2-1); TOT PROT 6.3 g/dl (6.4-8.2)
[2023-11-17] MEDS: DOCUSATE NA 100 MG/10 ML UNIT-DOSE CUPS PO SCH (21:58)
[2023-11-17] MEDS: MINERAL OIL ENEMA 133 ML ENEMA RC SCH (21:59)
[2023-11-17] MEDS: POLYETHYLENE GLYCOL (HEALTHYLAX) 3350 17 GM PACKET PO SCH (22:00)
[2023-11-18 08:05] LABS: POTASSIUM 4.5 mmol/L (3.5-5.1)
[2023-11-18 08:09] LABS: CALCIUM 9.2 mg/dL (8.5-10.1)
[2023-11-18 08:10] LABS: ALBUMIN 3.3 g/dl (3.4-5.0); BLOOD UREA NITROGEN 25.5 mg/dL (7-18); MAGNESIUM 2.1 mg/dL (1.8-2.4)
[2023-11-18 08:12] LABS: CREATININE 0.7 mg/dL (0.55-1.3)
[2023-11-18 08:14] LABS: BILIRUBIN,TOTAL 0.6 mg/dL (0.2-1); TOT PROT 6.2 g/dl (6.4-8.2)
[2023-11-18 08:31] LABS: BASO % 0.7 % (0-2.0); EOS % 0.1 % (0-4.5); HEMATOCRIT 31.1 % (32.4-45.2); HEMOGLOBIN 10.7 GM/dL (10.7-15.3); LYMPH % 18.3 % (8-40); MCH 29.7 pg (25.7-33.7); MCHC 34.5 g/dl (32.0-36.0); MEAN CELL VOLUME 86.2 fl (80-96); MEAN PLT VOLUME 7.7 fl (7.5-11.1); MONO % 10.2 % (3.8-10.2); NEUT % 70.7 % (42.8-82.8); PLATELET COUNT 232 10^3/uL (134-434); RDW 15.1 % (11.6-15.6); WHITE BLOOD COUNT 4.2 K/mm3 (4.0-10.0)
[2023-11-19 08:50] LABS: BASO % 0.7 % (0-2.0); EOS % 0.2 % (0-4.5); HEMATOCRIT 28.1 % (32.4-45.2); HEMOGLOBIN 9.8 GM/dL (10.7-15.3); LYMPH % 23.7 % (8-40); MCH 30.1 pg (25.7-33.7); MCHC 34.8 g/dl (32.0-36.0); MEAN CELL VOLUME 86.5 fl (80-96); MEAN PLT VOLUME 7.7 fl (7.5-11.1); MONO % 12.2 % (3.8-10.2); NEUT % 63.2 % (42.8-82.8); PLATELET COUNT 203 10^3/uL (134-434); RBC 3.24 M/mm3 (3.60-5.2); RDW 15.2 % (11.6-15.6); WHITE BLOOD COUNT 3.7 K/mm3 (4.0-10.0)
[2023-11-19 08:51] LABS: INR 0.97 (0.83-1.09)
[2023-11-19 09:06] LABS: POTASSIUM 4.2 mmol/L (3.5-5.1)
[2023-11-19 09:11] LABS: ALBUMIN 2.9 g/dl (3.4-5.0); BLOOD UREA NITROGEN 24.7 mg/dL (7-18); MAGNESIUM 2.3 mg/dL (1.8-2.4)
[2023-11-19 09:14] LABS: CREATININE 0.7 mg/dL (0.55-1.3)
[2023-11-19 09:16] LABS: BILIRUBIN,TOTAL 0.2 mg/dL (0.2-1); TOT PROT 5.5 g/dl (6.4-8.2)
[2023-11-20 08:41] LABS: POTASSIUM 4.2 mmol/L (3.5-5.1)
[2023-11-20 08:46] LABS: CALCIUM 9.4 mg/dL (8.5-10.1)
[2023-11-20 08:47] LABS: ALBUMIN 3.1 g/dl (3.4-5.0); BLOOD UREA NITROGEN 30.7 mg/dL (7-18); MAGNESIUM 2.3 mg/dL (1.8-2.4)
[2023-11-20 08:48] LABS: BASO % 0.7 % (0-2.0); EOS % 0.2 % (0-4.5); HEMATOCRIT 31.5 % (32.4-45.2); HEMOGLOBIN 10.8 GM/dL (10.7-15.3); LYMPH % 18.4 % (8-40); MCH 29.8 pg (25.7-33.7); MCHC 34.2 g/dl (32.0-36.0); MEAN PLT VOLUME 7.7 fl (7.5-11.1); MONO % 12.2 % (3.8-10.2); NEUT % 68.5 % (42.8-82.8); PLATELET COUNT 215 10^3/uL (134-434); RBC 3.61 M/mm3 (3.60-5.2); RDW 14.8 % (11.6-15.6); WHITE BLOOD COUNT 3.9 K/mm3 (4.0-10.0)
[2023-11-20 08:50] LABS: CREATININE 0.7 mg/dL (0.55-1.3)
[2023-11-20 08:52] LABS: BILIRUBIN,TOTAL 0.4 mg/dL (0.2-1)
[2023-11-21] MEDS: ALPRAZolam 0.25 MG TABLET PO PRN (08:03)
[2023-11-21 08:05] VITALS: RESP 18
[2023-11-21 09:59] LABS: EOS % 0.4 % (0-4.5); HEMATOCRIT 29.7 % (32.4-45.2); HEMOGLOBIN 10.2 GM/dL (10.7-15.3); LYMPH % 22.6 % (8-40); MCH 30.1 pg (25.7-33.7); MCHC 34.3 g/dl (32.0-36.0); MEAN CELL VOLUME 87.6 fl (80-96); MEAN PLT VOLUME 7.8 fl (7.5-11.1); MONO % 11.8 % (3.8-10.2); NEUT % 64.2 % (42.8-82.8); PLATELET COUNT 193 10^3/uL (134-434); RBC 3.39 M/mm3 (3.60-5.2); RDW 14.8 % (11.6-15.6); WHITE BLOOD COUNT 3.8 K/mm3 (4.0-10.0)
[2023-11-21 10:09] LABS: POTASSIUM 4.2 mmol/L (3.5-5.1)
[2023-11-21 10:16] LABS: BLOOD UREA NITROGEN 28.1 mg/dL (7-18); CALCIUM 8.8 mg/dL (8.5-10.1); MAGNESIUM 2.1 mg/dL (1.8-2.4)
[2023-11-21 10:19] LABS: CREATININE 0.6 mg/dL (0.55-1.3)
[2023-11-21 10:21] LABS: BILIRUBIN,TOTAL 0.4 mg/dL (0.2-1); TOT PROT 5.7 g/dl (6.4-8.2)
[2023-11-21] MEDS: HEPARIN NA (PORCINE) 5,000 UNITS/ML 1ML VIAL SQ SCH (21:21)
[2023-11-22 08:25] LABS: BASO % 1.2 % (0-2.0); EOS % 0.1 % (0-4.5); HEMATOCRIT 28.6 % (32.4-45.2); HEMOGLOBIN 9.9 GM/dL (10.7-15.3); LYMPH % 23.4 % (8-40); MCH 30.3 pg (25.7-33.7); MCHC 34.6 g/dl (32.0-36.0); MEAN CELL VOLUME 87.7 fl (80-96); MEAN PLT VOLUME 8.1 fl (7.5-11.1); MONO % 11.5 % (3.8-10.2); NEUT % 63.8 % (42.8-82.8); PLATELET COUNT 194 10^3/uL (134-434); RBC 3.26 M/mm3 (3.60-5.2); RDW 15.3 % (11.6-15.6); WHITE BLOOD COUNT 3.4 K/mm3 (4.0-10.0)
[2023-11-22 08:33] LABS: POTASSIUM 4.4 mmol/L (3.5-5.1)
[2023-11-22 08:41] LABS: BILIRUBIN,TOTAL 0.3 mg/dL (0.2-1)
[2023-11-22 08:42] LABS: CREATININE 0.7 mg/dL (0.55-1.3); TOT PROT 5.5 g/dl (6.4-8.2)
[2023-11-22 08:43] LABS: ALBUMIN 2.8 g/dl (3.4-5.0)
[2023-11-22 08:46] LABS: CALCIUM 8.7 mg/dL (8.5-10.1); MAGNESIUM 2.2 mg/dL (1.8-2.4)
[2023-11-22] MEDS: ERTAPENEM SODIUM 1 GM in SODIUM CHLORIDE 50 ML IVPB SCH (17:48)
[2023-11-23 09:27] LABS: POTASSIUM 4.4 mmol/L (3.5-5.1)
[2023-11-23 09:30] LABS: CALCIUM 8.8 mg/dL (8.5-10.1)
[2023-11-23 09:31] LABS: ALBUMIN 2.8 g/dl (3.4-5.0); BLOOD UREA NITROGEN 27.6 mg/dL (7-18)
[2023-11-23 09:34] LABS: CREATININE 0.6 mg/dL (0.55-1.3)
[2023-11-23 09:35] LABS: BILIRUBIN,TOTAL 0.3 mg/dL (0.2-1); TOT PROT 5.4 g/dl (6.4-8.2)
[2023-11-23 15:39] VITALS: BP 132/85; PULSE 88; TEMP 97.8
== END 2023-11-23 18:00 | DRG 637 ==
LOC: JER 12:24 → JERBED 15:01 → J8W 16:55
PROVIDERS: ADMIT Internal Medicine; ATTEND Nurse Practitioner Acute Care
PROC: 02HV33Z Insertion of Infusion Device into Superior Vena Cava, Percutaneous Approach (ICD-10-PCS; principal; 2023-11-23)
PROC: B518ZZA Fluoroscopy of Superior Vena Cava, Guidance (ICD-10-PCS; 2023-11-23)
DX: E11.69 Type 2 diabetes mellitus with other specified complication (principal); E43 Unspecified severe protein-calorie malnutrition; U07.1 COVID-19; L03.115 Cellulitis of right lower limb; M86.8X7 Other osteomyelitis, ankle and foot; Z68.1 Body mass index [BMI] 19.9 or less, adult; K50.90 Crohn's disease, unspecified, without complications; L97.518 Non-pressure chronic ulcer of other part of right foot with other specified severity; N82.4 Other female intestinal-genital tract fistulae; R53.2 Functional quadriplegia; I10 Essential (primary) hypertension; F03.90 Unspecified dementia, unspecified severity, without behavioral disturbance, psychotic disturbance, mood disturbance, and anxiety; E11.621 Type 2 diabetes mellitus with foot ulcer; K52.89 Other specified noninfective gastroenteritis and colitis; K59.00 Constipation, unspecified
CPT/HCPCS: 36415; 36569; 73718-TC-RT; 74019-TC-FY; 74176-TC; 75635-TC; 80053; 83735; 85025; 85610; 85730; 86850; 86900; 86901; 87040; 87070; 87186; 87205; 87635; 93005; 93010; 99285-25; G0463-25; J1644; Q9967